=== PATIENT | male | born 1940 | race Caucasian/White ===

== ENCOUNTER 2018-10-05 21:15 | Inpatient (IN) ==
[2018-10-05] MEDS ORDERED: Sod Chloride 0.9% Inj 1,000 ML IV.CONT SCH (21:30)
[2018-10-05] MEDS ORDERED: ALTEPLASE DRIP IV.SIG ONE (21:37)
[2018-10-05] MEDS ORDERED: Alteplase Bolus 9 MG/9 ML Syringe IV.PUSH ONE (21:37)
--- NOTE | 2018-10-05 21:38 | CT ---
EXAM DATE: 10/05/2018 9:31 PM EST AGE/SEX: 78 years / Male INDICATIONS: STROKE ALERT. Left sided weakness. CLINICAL DATA: This is the patient's initial encounter. Patient reports that signs and symptoms have been present for 1 day and indicates a pain score of Nonresponsive. MEDICAL/SURGICAL HISTORY: Non-responsive. Non-responsive. RADIATION DOSE: 56.35 CTDI (mGy) COMPARISON: No prior exams available for comparison. TECHNIQUE: CT of the head without contrast. Using automated exposure control and adjustment of the mA and/or kV according to patient size, radiation dose was kept as low as reasonably achievable to ob tain optimal diagnostic quality images. DICOM format image data is available electronically for revi ew and comparison. FINDINGS: Cerebrum: Diffuse moderate atrophic change with sulcal and ventricular prominence. Patchy periventri cular white matter lucencies are present. No evidence of midline shift, mass lesion, hemorrhage or ac [place] infarction. No extraaxial fluid collections are seen. Posterior Fossa: The cerebellum and brainstem are intact. The 4th ventricle is midline. The cerebe llopontine angle is unremarkable. Extracranial: The visualized portion of the orbits is intact. Skull: The calvaria is intact. No evidence of skull fracture. CONCLUSION: 1. No acute hemorrhage or visualized stroke. 2. Atrophy and chronic small vessel ischemic changes. These findings were called to Dr. Dao by Dr. Jauregui at 2136 hours. Electronically signed by: Derek Jauregui MD Board Certified Radiologist 10/05/2018 9:36 PM EST
[2018-10-05 21:49] LABS: Baso # (Auto) 0.1 th/mm3 (0.0-0.2); Eos # (Auto) 0.2 th/mm3 (0.0-0.4); Eos % (Auto) 2.4 % (0.0-4.0); Hematocrit 42.6 % (39.0-51.0); Hemoglobin 14.4 gm/dL (13.0-17.0); Lymph # (Auto) 1.8 th/mm3 (1.0-4.8); Lymph % (Auto) 25.8 % (9.0-44.0); Mean Corpuscular HGB Conc 33.6 % (32.0-36.0); Mean Corpuscular Hemoglobin 26.6 pg (27.0-34.0); Mean Platelet Volume 7.7 fL (7.0-11.0); Mono # (Auto) 0.6 th/mm3 (0.0-0.9); Mono % (Auto) 8.4 % (0.0-8.0); Neut # (Auto) 4.3 th/mm3 (1.8-7.7); Neut % (Auto) 62.4 % (16.0-70.0); Platelet Count 191 th/mm3 (150-450); Red Blood Count 5.39 mil/mm3 (4.50-5.90); Red Cell Distribution Width 14.9 % (11.6-17.2); White Blood Count 6.8 th/mm3 (4.0-11.0)
[2018-10-05 21:55] LABS: Activated Partial Thrombo Time 25.1 sec (23.4-31.7); INR 1.1 Ratio; Prothrombin Time 10.7 sec (9.8-11.6)
[2018-10-05 22:00] LABS: Creatine Kinase 46 U/L (39-308)
--- NOTE | 2018-10-05 22:03 | CT ---
EXAM DATE: 10/05/2018 9:56 PM EST AGE/SEX: 78 years / Male INDICATIONS: STROKE ALERT. Left sided weakness. CLINICAL DATA: This is the patient's initial encounter. Patient reports that signs and symptoms have been present for 1 day and indicates a pain score of 10/10. MEDICAL/SURGICAL HISTORY: Non-responsive. Non-responsive. RADIATION DOSE: 10.31 CTDI (mGy) ; Combined studies COMPARISON: [facility] [place], CT HEAD W/O CONTRAST, 10/05/2018. . TECHNIQUE: Volumetric scanning was performed using a multi-row detector CT scanner during bolus infu kaelyn of 82 ml Visipaque 320 (iodixanol) nonionic water-soluble contrast as a cumulative dose for mul tiple exams. The data was post processed with a variety of visualization algorithms including full volume maximum intensity projection, multi-planar sliding thin slab reformation, curved planar reform ation, and surface rendering techniques. Using automated exposure control and adjustment of the mA a nd/or kV according to patient size, radiation dose was kept as low as reasonably achievable to obtain optimal diagnostic quality images. DICOM format image data is available electronically for review a nd comparison. FINDINGS: There is excellent visualization of the major intracranial arteries out to the second-order branch ve ssels. There is no evidence for aneurysm, vessel truncation or stenosis, and no evidence for vascula r malformation. CONCLUSION: 1. Negative CTA Head. The report was called to Dr. Dao by Dr. Juarez at 10:00 PM on 10/05/2017. Electronically signed by: Adelfo Juarez MD Board Certified Radiologist 10/05/2018 10:01 PM EST
--- NOTE | 2018-10-05 22:11 | CT ---
EXAM DATE: 10/05/2018 10:02 PM EST AGE/SEX: 78 years / Male INDICATIONS: STROKE ALERT. Left sided weakness. CLINICAL DATA: This is the patient's initial encounter. Patient reports that signs and symptoms have been present for 1 day and indicates a pain score of Nonresponsive. MEDICAL/SURGICAL HISTORY: Non-responsive. Non-responsive. RADIATION DOSE: 10.31 CTDI (mGy) ; Combined studies COMPARISON: No prior exams available for comparison. TECHNIQUE: Volumetric scanning was performed using a multirow detector CT scanner during bolus infus ion of 82 ml Visipaque 320 (iodixanol) nonionic water-soluble contrast as a cumulative dose for mult iple exams. The data was postprocessed with a variety of visualization algorithms including full-vo lume maximum intensity projection, multiplanar sliding thin-slab reformation, curved-planar reformati on, and surface-rendering techniques. Using automated exposure control and adjustment of the mA and/ or kV according to patient size, radiation dose was kept as low as reasonably achievable to obtain op timal diagnostic quality images. DICOM format image data is available electronically for review and comparison. FINDINGS: Aortic Arch: There is a three-vessel origin of the great vessels from the aorta. No evidence of ost ial narrowing Right Carotid: The common carotid artery is intact. The carotid bulb has a normal configuration mil d plaquing calcification. There is less than 50% diameter stenosis. The internal carotid artery lumen is smooth without stenosis. The external carotid artery is intact. Left Carotid: The common carotid artery is intact. The carotid bulb has a normal configuration with mild plaquing and calcification. There is less than 50% diameter stenosis. The internal carotid julia ry lumen is smooth without stenosis. The external carotid artery is intact. Vertebrals: The dominant right vertebral artery. The left is diminutive. No stenotic lesions are see n. Percent stenosis is calculated using the diameter of the stenotic region over the diameter of the nor mal distal internal carotid artery. CONCLUSION: 1. Bilateral plaquing the carotid arteries with less than 50% diameter stenosis. 2. Dominant right vertebral artery with diminutive left vertebral artery. Electronically signed by: Derek Jauregui MD Board Certified Radiologist 10/05/2018 10:09 PM EST
[2018-10-05] MEDS: niCARdipine Inj 25 MG in Sodium Chlor 0.9% Inj 240 ML IV.CONT PRN (22:19)
--- NOTE | 2018-10-05 22:21 | XR ---
EXAM DATE: 10/05/2018 10:18 PM EST AGE/SEX: 78 years / Male INDICATIONS: Stroke alert. CLINICAL DATA: This is the patient's initial encounter. Patient reports that signs and symptoms have been present for 1 day and indicates a pain score of 0/10. MEDICAL/SURGICAL HISTORY: Non-responsive. Non-responsive. COMPARISON: No prior exams available for comparison. FINDINGS: A single AP view of the chest demonstrates the lungs to be symmetrically aerated without evidence of mass, infiltrate or effusion. The cardiomediastinal contours are unremarkable. Osseous structures a re intact. CONCLUSION: No acute cardiopulmonary disease. Electronically signed by: Adelfo Juarez MD Board Certified Radiologist 10/05/2018 10:20 PM EST
--- NOTE | 2018-10-05 22:30 | ED ---
HPI General Chief Complaint: Stroke Alert Stated Complaint: Stroke Alert/ EVAC Time Seen by Provider: 10/05/18 21:18 Source: patient and EMS Mode of arrival: EMS Limitations: no limitations History of Present Illness HPI Narrative: The patient is a 78-year-old male who presents to the emergency department via EMS as a stroke alert. The patient was watching TV and went to reach for drink with his left hand at approximately 8:15 PM when he realized he had weakness of his left arm and then his left leg. The called EMS who called a stroke alert in the field. Upon arrival the patient does complain of weakness to left arm and left leg with weakness and numbness of the left leg. He denies any difficulty with his vision, does complain of feeling slightly off balance. The patient does have a history of hypertension and hyperlipidemia, however, does not currently take any medications including anticoagulants. The patient denies any previous history of TIA or CVA. Symptoms are moderate and consistent. There are no current alleviating factors. Onset (ago): minute(s) Last Observed Normal: 20:15 Timing confirmed by: spouse Location: Reports left arm and left leg History of same: No Severity: moderate Quality: Reports weak, numb and constant Relieving factors: none Exacerbating factors: none Context: Reports sudden onset On Anticoagulants: No Associated symptoms: Reports denies other symptoms Treatments Prior to Arrival: Reports none Related Data Allergies Allergy/AdvReac Type Severity Reaction Status Date / Time No Known Allergies Allergy Verified 10/05/18 21:18 Review of Systems ROS: all other systems reviewed are negative [facility] Medical History Medical History High cholesterol (Acute) Hypertension (Acute) Social History Social History Smoking Status: Former smoker How Often Do You Have a Drink Containing Alcohol: Monthly or less Recent Travel in [facility] within the Last 8 Weeks: No Recent Out of Country Travel within the Last 8 Weeks: No Immunization History Tetanus Immunization: <5 Years Exam Narrative Exam Narrative: GENERAL: Awake, alert, pleasant 78-year-old male who appears his stated age and is in no acute respiratory distress. SKIN: Focused skin assessment warm/dry. HEAD: Atraumatic. Normocephalic. EYES: Pupils equal and round. 3 mm bilateral and reactive. EOMs are intact. ENT: No nasal bleeding or discharge. Mucous membranes pink and moist. NECK: Trachea midline. No JVD. CARDIOVASCULAR: Regular rate and rhythm. No murmur appreciated. RESPIRATORY: No accessory muscle use. Clear to auscultation. Breath sounds equal bilaterally. GASTROINTESTINAL: Abdomen soft, non-tender, nondistended. MUSCULOSKELETAL: No obvious deformities. No clubbing. No cyanosis. No edema. NEUROLOGICAL: Awake and alert. No obvious cranial nerve deficits. No dysarthria. Mild drift to the left arm less than 10 seconds but does not fall to bed. The left leg falls to the bed less than 5 seconds. Decreased sensation to the left leg when compared to the right, however, arms and face are within normal limits and symmetric. Finger to nose is normal. Heel to hernandez is normal. Visual jay are symmetric and intact bilaterally. The patient is oriented x3 and able to name my hand and his date of . NIHSS 4. PSYCHIATRIC: Appropriate mood and affect; insight and judgment normal. Course Initial Documented Vital Signs Temperature 98.2 F 10/05/18 21:17 Pulse Rate 75 10/05/18 21:17 Respiratory Rate 16 10/05/18 21:17 Blood Pressure 201/86 H 10/05/18 21:17 Pulse Oximetry 97 10/05/18 21:17 Last Documented Vital Signs Temperature 98.2 F 10/05/18 21:17 Pulse Rate 84 10/05/18 21:45 Respiratory Rate 16 10/05/18 21:45 Blood Pressure 183/83 H 10/05/18 21:45 Pulse Oximetry 99 10/05/18 21:45 Critical Care Time Critical Care Time: Yes Total Critical Care Time: 45 Attestation: Aggregate critical care time was 45 minutes. Time to perform other separately billable procedures was not included in the critical care time. My time did not include minutes spent treating any other patients simultaneously or on activities that did not directly contribute to the patient's treatment. The services I provided to this patient were to treat and/or prevent clinically significant deterioration that could result in: Hypertensive urgency, hypertensive emergency, chronic neurologic deficit, CVA, intracranial hemorrhage. I provided critical care services requiring my management, as noted below: Chart data review, documentation time, medication orders and management, vital sign assessments/reviewing monitor data, ordering and reviewing lab tests, ordering and interpreting/reviewing x-rays and diagnostic studies, care of the patient and discussion of the patient with the admitting physicians. NIH Stroke Scale NIHSS Time Completed NIHSS Time Completed: 21:14 NIH Stroke Scale Level of Consciousness: 0-Alert Orientation Questions: 0-Answers both correct Responds to Commands: 0-Both tasks correct Gaze Eye Movement: 0-Horizontal movement WNL Visual Jay: 0-No visual field defect Facial Movement: 0-Normal Motor Functions Arm LEFT: 1-Drift before 10 seconds Motor Functions Arm RIGHT: 0-No drift Motor Functions Leg LEFT: 2-Falls before 5 seconds Motor Functions Leg RIGHT: 0-No drift Limb Ataxia: 0-No ataxia Sensory Loss: 1-Mild sensory loss Best Language: 0-Normal Articulation: 0-Normal Extinction or Inattention Sensory: 0-Absent Total: 4 Medical Decision Making MDM Narrative Medical decision making narrative: IV was established, labs are drawn and sent, and the patient was placed on cardiac telemetry monitoring and continuous pulse oximetry monitoring. A stroke scale was as test at 2114, the patient stroke scale was 4. I discussed the patient immediately with a neurologist, Dr. Prashanth Dao, who evaluated the patient in the emergency department as he went to CT for CT of the brain, CTA of the head, and CTA of the neck. Dr. Dao, the neurologist, did follow the patient to the CT suite, the patient CT the brain was negative, the patient was administered TPA after discussion regarding the risk and benefits was given to the patient verbally. The patient received TPA, came back to echo pot room 49. The patient's blood pressure was elevated with systolic greater than 180, therefore, the patient was placed on a Cardene drip which brought his systolic pressure down to 168. The patient will be admitted to the intensive surgical care unit overnight for monitoring with repeat CT the brain in the morning. I discussed the findings with the patient and his at bedside. The patient started vomiting at 10:48 PM, he was placed in the left lateral decubitus position and administered Zofran 4 mg intravenously. Nursing staff placed a call to the continuity person, Dr. Coffey, who had evaluated the patient prior to this. Medical Screen Exam Complete: Yes Emergency Medical Condition: Yes Differential Diagnosis Differential Diagnosis: Differential diagnosis includes CVA, TIA, transient neurologic deficit, intracranial tumor, atypical seizure, complicated migraine, MS. Lab Data Lab results reviewed: Yes I reviewed the patient's lab results. Result diagrams: 10/05/18 21:23 Lab Results 10/05/18 10/05/18 10/05/18 Range/Units 21:23 21:23 21:23 WBC 6.8 (4.0-11.0) th/mm3 RBC 5.39 (4.50-5.90) mil/mm3 Hgb 14.4 (13.0-17.0) gm/dL POC Hgb (Calc) 13.9 (13.0-17.0) g/dL Hct 42.6 (39.0-51.0) % POC Hct 41.0 (39-51.0) % MCV 79.0 L (80.0-100.0) fL MCH 26.6 L (27.0-34.0) pg MCHC 33.6 (32.0-36.0) % RDW 14.9 (11.6-17.2) % Plt Count 191 (150-450) th/mm3 MPV 7.7 (7.0-11.0) fL Prelim Diff (Auto) Slide review pending Neut % (Auto) 62.4 (16.0-70.0) % Lymph % (Auto) 25.8 (9.0-44.0) % [place] % (Auto) 8.4 H (0.0-8.0) % Eos % (Auto) 2.4 (0.0-4.0) % Baso % (Auto) 1.0 (0.0-2.0) % Neut # (Auto) 4.3 (1.8-7.7) th/mm3 Lymph # (Auto) 1.8 (1.0-4.8) th/mm3 [place] # (Auto) 0.6 (0.0-0.9) th/mm3 Eos # (Auto) 0.2 (0.0-0.4) th/mm3 Baso # (Auto) 0.1 (0.0-0.2) th/mm3 WBC Differential . Diff Scan Auto diff confirmed Differential Comment . PT 10.7 (9.8-11.6) sec INR 1.1 Ratio APTT 25.1 (23.4-31.7) sec Fibrinogen 363 (227-377) mg/dL POC Sodium 140 (137-144) mmol/L POC Potassium 3.5 L (3.6-5.0) mmol/L POC Chloride 105 (102-111) mmol/L POC BUN 20 (5-21) mg/dL POC Creatinine 2.2 H (0.6-1.3) mg/dL POC Glucose 121 H (68-110) mg/dL Total Creatine Kinase 46 (39-308) U/L Troponin I Less than 0.02 L (0.02-0.05) ng/mL Blood Type Blood Type Recheck Antibody Screen 10/05/18 Range/Units 21:23 WBC (4.0-11.0) th/mm3 RBC (4.50-5.90) mil/mm3 Hgb (13.0-17.0) gm/dL POC Hgb (Calc) (13.0-17.0) g/dL Hct (39.0-51.0) % POC Hct (39-51.0) % MCV (80.0-100.0) fL MCH (27.0-34.0) pg MCHC (32.0-36.0) % RDW (11.6-17.2) % Plt Count (150-450) th/mm3 MPV (7.0-11.0) fL Prelim Diff (Auto) Neut % (Auto) (16.0-70.0) % Lymph % (Auto) (9.0-44.0) % [place] % (Auto) (0.0-8.0) % Eos % (Auto) (0.0-4.0) % Baso % (Auto) (0.0-2.0) % Neut # (Auto) (1.8-7.7) th/mm3 Lymph # (Auto) (1.0-4.8) th/mm3 [place] # (Auto) (0.0-0.9) th/mm3 Eos # (Auto) (0.0-0.4) th/mm3 Baso # (Auto) (0.0-0.2) th/mm3 WBC Differential Diff Scan Differential Comment PT (9.8-11.6) sec INR Ratio APTT (23.4-31.7) sec Fibrinogen (227-377) mg/dL POC Sodium (137-144) mmol/L POC Potassium (3.6-5.0) mmol/L POC Chloride (102-111) mmol/L POC BUN (5-21) mg/dL POC Creatinine (0.6-1.3) mg/dL POC Glucose (68-110) mg/dL Total Creatine Kinase (39-308) U/L Troponin I (0.02-0.05) ng/mL Blood Type O Positive Blood Type Recheck Required Antibody Screen Negative Imaging Data Attestation: I personally reviewed and interpreted this imaging study as follows : Radiologist's impression: Chest X-Ray 10/05/18 21:18 CONCLUSION: No acute cardiopulmonary disease. Head CT 10/05/18 21:18 CONCLUSION: 1. No acute hemorrhage or visualized stroke. 2. Atrophy and chronic small vessel ischemic changes. These findings were called to Dr. Dao by Dr. Jauregui at 2136 hours. Head CTA 10/05/18 21:18 CONCLUSION: 1. Negative CTA Head. The report was called to Dr. Dao by Dr. Juarez at 10:00 PM on 10/05/2017. Neck CTA 10/05/18 21:18 CONCLUSION: 1. Bilateral plaquing the carotid arteries with less than 50% diameter stenosis. 2. Dominant right vertebral artery with diminutive left vertebral artery. Discharge Plan Discharge Disposition Patient Disposition: ED Admit(ED Internal Use Only) Discharge Condition Condition: Serious Discharge Details Diagnosis: Acute cerebrovascular accident, Hypertension Physicians Team ED Provider: Hayden Reilly Primary Care Provider: UNKNOWN, Discharge Interventions Interventions: Vital Signs Last Done: 10/05/18 21:17 Status ED Status: With Doctor
[2018-10-05 22:47] LABS: Bilirubin,Urine Negative (Negative); Clarity,Urine Clear (Clear); Color,Urine Yellow (Yellw/Straw); Glucose,Urine (UA) Negative (Negative); Leukocyte Esterase,Urine Negative (Negative); Nitrite,Urine Negative (Negative); Specific Gravity,Urine 1.038 (1.002-1.035)
[2018-10-05 22:54] LABS: Amphetamine Screen,Urine Neg (Neg); Barbiturate Screen,Urine Neg (Neg); Cannabinoid Screen,Urine Neg (Neg); Cocaine Screen,Urine Neg (Neg)
[2018-10-05 22:58] LABS: Opiate Screen,Urine Neg (Neg)
--- NOTE | 2018-10-05 23:03 | P.HPCC ---
History of Present Illness Primary Care Physician: UNKNOWN History of Present Illness: 78-year-old male presents as a stroke alert. The patient was watching TV and went to reach for drink with his left hand at approximately 8: 15 PM when he realized he had weakness of his left arm and then his left leg. The called EMS who called a stroke alert in the field. Upon arrival the patient did complain of weakness to left arm and left leg with weakness and numbness of the left leg. He denied any difficulty with his vision, does complain of feeling slightly off balance. The patient does have a history of hypertension and hyperlipidemia, however, does not currently take any medications including anticoagulants. The patient denies any previous history of TIA or CVA. The case was discussed with neurologist on-call and the patient has received IV TPA infusion. Inpatient Certification: I certify that the inpatient services were ordered in accordance with Medicare regulations governing the order. This includes certification that hospital inpatient services are reasonable and necessary and in the case of services not specified as inpatient-only under 42 CFR 419.22(n), that they are appropriately provided as inpatient services in accordance to with the 2-midnight benchmark under 43 CFR 412.3(e) Review of Systems All other systems reviewed negative except as stated in HPI PMFSH - History History Provided By: Patient - Medical History Medical History: Medical History (Last Updated 10/06/18 @ 00:41 by Mitch Rojas RN) Hiatal hernia High cholesterol Hypertension - Surgical History Surgical History: Surgical History (Last Updated 10/06/18 @ 00:42 by Mitch Rojas RN) Hx of tonsillectomy - Tobacco History Smoking Status: Former smoker - Alcohol History How Often Do You Have a Drink Containing Alcohol: Monthly or less - Travel History Recent Travel in the [place] Within the Last 8 Weeks: No Recent Travel Out of the Country Within the Last 8 Weeks: No - Immunization History Tetanus Immunization: <5 Years Medications and Allergies Active Medications: Active Medications Sodium Chloride (Ns Inj) 1,000 mls @ 70 mls/hr IV.CONT .[id number] [facility] Last Admin: 10/05/18 22:59 Dose: 70 mls/hr Nicardipine HCl 25 mg/ Sodium (Chloride) 250 mls @ 50 mls/hr IV.CONT TITRATE PRN; Protocol PRN Reason: Per Protocol Last Admin: 10/05/18 22:19 Dose: 5 mg/hr, 50 mls/hr Allergies Allergy/AdvReac Type Severity Reaction Status Date / Time No Known Allergies Allergy Verified 10/05/18 21:18 Results - Labs CBC & Chem 7: 10/05/18 21:23 Labs: Short CBC 10/05/18 Range/Units 21:23 WBC 6.8 (4.0-11.0) th/mm3 Hgb 14.4 (13.0-17.0) gm/dL Hct 42.6 (39.0-51.0) % Plt Count 191 (150-450) th/mm3 Cardiac Enzymes 10/05/18 Range/Units 21:23 Total Creatine Kinase 46 (39-308) U/L Troponin I Less than 0.02 L (0.02-0.05) ng/mL Urine 10/05/18 Range/Units 22:32 Urine Color Yellow (Yellw/Straw) Urine Clarity Clear (Clear) Urine pH 6.0 (5.0-8.5) Ur Specific Swisher 1.038 H (1.002-1.035) Urine Protein Negative (Neg-Trace) mg/dL Urine Glucose (UA) Negative (Negative) mg/dL - Imaging Impressions Chest X-Ray 10/05/18 21:18 CONCLUSION: No acute cardiopulmonary disease. Head CT 10/05/18 21:18 CONCLUSION: 1. No acute hemorrhage or visualized stroke. 2. Atrophy and chronic small vessel ischemic changes. These findings were called to Dr. Dao by Dr. Jauregui at 2136 hours. Head CTA 10/05/18 21:18 CONCLUSION: 1. Negative CTA Head. The report was called to Dr. Dao by Dr. Juarez at 10:00 PM on 10/05/2017. Neck CTA 10/05/18 21:18 CONCLUSION: 1. Bilateral plaquing the carotid arteries with less than 50% diameter stenosis. 2. Dominant right vertebral artery with diminutive left vertebral artery. Exam Vital signs: Vital Signs 10/05/18 21:17 10/05/18 21:18 10/05/18 21:21 Temperature 98.2 F Pulse Rate 75 Respiratory Rate 16 Blood Pressure 201/86 H Pulse Oximetry 97 99 99 10/05/18 21:25 10/05/18 21:30 10/05/18 21:45 Temperature Pulse Rate 77 84 84 Respiratory Rate 16 18 16 Blood Pressure 179/80 H 181/82 H 183/83 H Pulse Oximetry 99 99 99 10/05/18 22:25 10/05/18 22:30 10/05/18 22:40 Temperature Pulse Rate 75 81 Respiratory Rate 16 16 Blood Pressure 179/81 H 160/74 H 167/65 H Pulse Oximetry 99 99 10/05/18 22:45 10/05/18 23:00 Temperature Pulse Rate 83 Respiratory Rate 16 Blood Pressure 163/72 H 179/71 H Pulse Oximetry 97 Intake & Output 10/05/18 10/05/18 10/06/18 06:59 18:59 06:59 Intake Total 71.5 / 71.5 Balance 71.5 / 71.5 Weight 88.451 kg Intake: IV 71.5 / 71.5 Activase Drip 71.5 MG In Bag/ 71.5 / 71.5 Syringe 1 EACH @ 71.5 mls/hr IV .SIG ONCE ONE Rx#:[id number] - Constitutional no acute distress - Routine HEENT Exam Head: Present: normocephalic, atraumatic Eye: Present: PERRL, normal accommodation ENT: Present: mucous membranes moist - Routine Neck Exam Present: supple, full ROM. Absent: JVD, carotid bruit - Routine Respiratory Exam Absent: accessory muscle use, rales, rhonchi - Routine Cardiovascular Exam Present: RRR, S1, S2 - Routine Abdominal Exam Present: soft, normoactive bowel sounds - Routine Extremities Exam Absent: cyanosis, clubbing, edema - Routine Skin Exam Present: intact. Absent: cyanosis, erythema - Routine Neurological Exam Present: alert, oriented X3, moving all extremities. Absent: sensory deficit, motor deficit Septic Shock Reassessment Septic shock perfusion: reassessment completed Caprini VTE Risk Assessment Caprini VTE Risk Assessment: Moderate/High Risk (score >= 2) Caprini Risk Assessment Model: Point Value = 1 Point Value = 2 Point Value = 3 Point Value = 5 Age 41-60 Minor surgery BMI > 25 kg/m2 Swollen legs Varicose veins or History of unexplained or recurrent spontaneous Oral contraceptives or hormone replacement Sepsis (< 1 month) Serious lung disease, including pneumonia (< 1 month) Abnormal pulmonary function Acute myocardial infarction Congestive heart failure (< 1 month) History of inflammatory bowel disease Medical patient at bed rest Age 61-74 Arthroscopic surgery Major open surgery (> 45 min) Laparoscopic surgery (> 45 min) Malignancy Confined to bed (> 72 hours) Immobilizing plaster cast Central venous access Age >= 75 History of VTE Family history of VTE Factor V Leiden Prothrombin [id number] Lupus anticoagulant Anticardiolipin antibodies Elevated serum homocysteine Heparin-induced thrombocytopenia Other congenital or acquired thrombophilia Stroke (< 1 month) Elective arthroplasty Hip, pelvis, or leg fracture Acute spinal cord injury (< 1 month) Prophylaxis Regimen: Total Risk Factor Score Risk Level Prophylaxis Regimen 0-1 Low Early ambulation 2 Moderate Order ONE of the following: *Sequential Compression Device (SCD) *Heparin 5000 units SQ BID 3-4 Higher Order ONE of the following medications: *Heparin 5000 units SQ TID *Enoxaparin/Lovenox 40 mg SQ daily (WT < 150 kg, CrCl > 30 mL/min) *Enoxaparin/Lovenox 30 mg SQ daily (WT < 150 kg, CrCl > 10-29 mL/min) *Enoxaparin/Lovenox 30 mg SQ BID (WT < 150 kg, CrCl > 30 mL/min) AND/OR *Sequential Compression Device (SCD) 5 or more Highest Order ONE of the following medications: *Heparin 5000 units SQ TID (Preferred with Epidurals) *Enoxaparin/Lovenox 40 mg SQ daily (WT < 150 kg, CrCl > 30 mL/min) *Enoxaparin/Lovenox 30 mg SQ daily (WT < 150 kg, CrCl > 10-29 mL/min) *Enoxaparin/Lovenox 30 mg SQ BID (WT < 150 kg, CrCl > 30 mL/min) AND *Sequential Compression Device (SCD) Assessment and Plan - Assessment and Plan Plan: Acute CVA -Status post TPA administration -BP goal less than 180 -PT and OT -Lipid panel and A1c a.m. -Repeat CT head per TPA protocol -Further management per neurology Dyslipidemia -Lipid panel a.m. Hypertension -Nicardipine drip to keep SBP less than 180 -Start Norvasc a.m. after swallow evaluation DVT GI prophylaxis -Teds SCDs -Start pharmacological DVT prophylaxis 24-hour post TPA -Pepcid Level 2
[2018-10-05] MEDS ORDERED: Acetaminophen 325 MG Tablet PO PRN (23:19)
[2018-10-05] MEDS ORDERED: Bisacodyl 10 MG Supp RECTAL PRN (23:19)
[2018-10-05] MEDS ORDERED: Morphine Inj 4 MG/ML Vial IV.PUSH PRN (23:19)
--- NOTE | 2018-10-05 23:20 | MB ---
cc: Prashanth Dao MD, PhD DATE: 10/05/2018 REASON FOR CONSULT: Stroke alert. HISTORY OF PRESENT ILLNESS: This is a 78-year-old male, who noted acute onset of left-sided weakness ____ and presented to the ER as a stroke alert. Symptoms remained stable. NIH stroke scale initially was 4. He was hypertensive upon arrival in the ER. Blood pressure came down to 178/80. There is no prior history of stroke. Denies being on any blood thinners. NEUROLOGICAL EXAMINATION: VITAL SIGNS: Blood pressure 178/80, pulse is 75 and regular, normal sinus rhythm, respirations 16, temperature 98 degrees. HIGHER CORTICAL FUNCTION: speech is mildly dysarthric. CRANIAL NERVES: Intact. MOTOR EXAM: He is weak in the left arm and left leg at 4/5, with normal strength on the right. Diminished strength risk of blood clots. Sensory exams to abduction of the left leg. Reflexes are 2+ symmetric. IMAGING STUDIES: CT of the brain, no acute change present. CTA of the head is negative for any large vessel occlusion. LABORATORY DATA: White count 6800, hemoglobin 14.4, hematocrit 42.6%, platelets 191,000. PTT ____, PTT 25.1. Sodium is 140, potassium 3.5, chloride 105, BUN is 20, creatinine 2.2, glucose 121. CPK 46. IMPRESSION: Acute right hemispheric stroke. RECOMMENDATIONS: The patient is a candidate for IV tPA. This is discussed with the patient, including the risk of cerebral hemorrhage. He agrees to proceed. Therefore, we proceeded with IV tPA per protocol. There is no evidence of large vessel occlusion for intervention. The patient will be monitored in the [facility] with close neuro checks. No antiplatelets or anticoagulants for 24 hours after tPA. We will obtain a CT of the brain 24 hours post-tPA. Also, MRI of the brain and echocardiogram and lipid panel. Thank you for asking me to see this patient in consultation. Prashanth Dao MD, PhD JOON/jean-claude/shama , 10:07 PM , 10:13 PM
[2018-10-06] MEDS: niCARdipine Inj 25 MG in Sodium Chlor 0.9% Inj 240 ML IV.CONT PRN ×3 (02:36→14:21)
[2018-10-06] MEDS ORDERED: Chlorhexidine Gluconate 2% 1 Pack (2 Cloths) TOPICAL PRN (04:00)
[2018-10-06] MEDS: Chlorhexidine Gluconate 2% 1 Pack (2 Cloths) TOPICAL SCH (04:17)
--- NOTE | 2018-10-06 09:19 | MR ---
EXAM DATE: 10/06/2018 9:14 AM EST AGE/SEX: 78 years / Male INDICATIONS: . Left arm and leg weakness. CLINICAL DATA: This is the patient's subsequent encounter. Patient reports that signs and symptoms h ave been present for 2 days and indicates a pain score of 0/10. MEDICAL/SURGICAL HISTORY: Hypertension. Tonsillectomy. hernia COMPARISON: [facility] [place], CT HEAD W/O CONTRAST, 10/05/2018. . TECHNIQUE: Multiplanar, multisequence examination of the brain was performed without contrast. FINDINGS: Cerebrum: Focal signal abnormality is noted involving the right lateral thalamus on the diffusion-we ighted images indicating acute infarct. Mild cerebral atrophy is noted. No acute hemorrhage, midline shift or extra-axial fluid collections are noted. White Matter: Mild periventricular and subcortical white matter small vessel ischemic changes noted b ilaterally. Posterior Fossa: The cerebellum and brainstem are intact. The 4th ventricle is midline. The cerebel lopontine angle is unremarkable. The cerebellar tonsils are normal in position. Diffusion Imaging: No focal areas of restricted diffusion are seen. No evidence of acute infarction . Extracranial: The visualized portions of the orbits and paranasal sinuses are unremarkable. CONCLUSION: 1. Focal signal abnormality within the right lateral thalamus on the diffusion-weighted images indic ating acute infarct. 2. Mild cerebral atrophy. 3. Mild periventricular and subcortical white matter small vessel ischemic changes bilaterally. 4. No acute hemorrhage, midline shift, mass effect or extra-axial fluid collection. Electronically signed by: Adelfo Juarez MD Board Certified Radiologist 10/06/2018 9:18 AM EST
[2018-10-06] MEDS: Famotidine PF Inj 20 MG/2 ML Vial IV.PUSH SCH ×2 (09:40→21:16)
[2018-10-06] MEDS: Sod Chloride 0.9% Inj 1,000 ML IV.CONT SCH ×3 (09:40→21:16)
[2018-10-06] MEDS: Senna/Docusate Sodium 8.6/50 MG Tablet PO SCH ×2 (09:41→21:15)
--- NOTE | 2018-10-06 12:24 | P.PNIM ---
Subjective Interval history: Patient reports he is feeling much better today. Left-sided weakness significantly improved. Discussed with his significant other at bedside. Discussed with RN. He still requires a Cardene drip. Physical Exam Vital signs: Vital Signs 10/05/18 21:17 10/05/18 21:18 10/05/18 21:21 Temperature 98.2 F Pulse Rate 75 Respiratory Rate 16 Blood Pressure 201/86 H Pulse Oximetry 97 99 99 10/05/18 21:25 10/05/18 21:30 10/05/18 21:45 Temperature Pulse Rate 77 84 84 Respiratory Rate 16 18 16 Blood Pressure 179/80 H 181/82 H 183/83 H Pulse Oximetry 99 99 99 10/05/18 22:25 10/05/18 22:30 10/05/18 22:40 Temperature Pulse Rate 75 81 Respiratory Rate 16 16 Blood Pressure 179/81 H 160/74 H 167/65 H Pulse Oximetry 99 99 10/05/18 22:45 10/05/18 23:00 10/05/18 23:07 Temperature Pulse Rate 83 Respiratory Rate 16 Blood Pressure 163/72 H 179/71 H Pulse Oximetry 97 98 10/05/18 23:10 10/05/18 23:15 10/06/18 00:00 Temperature 97.5 F L Pulse Rate 84 83 Respiratory Rate 16 16 Blood Pressure 169/78 H 164/73 H 167/77 H Pulse Oximetry 98 97 10/06/18 00:01 10/06/18 00:19 10/06/18 00:33 Temperature Pulse Rate 87 85 79 Respiratory Rate 30 H 39 H 35 H Blood Pressure 164/79 H 168/78 H Pulse Oximetry 94 L 95 10/06/18 00:48 10/06/18 00:54 10/06/18 01:00 Temperature Pulse Rate 88 89 78 Respiratory Rate 29 H 36 H 26 H Blood Pressure 180/81 H 170/75 H Pulse Oximetry 95 96 95 10/06/18 01:03 10/06/18 01:18 10/06/18 01:33 Temperature Pulse Rate 77 88 86 Respiratory Rate 35 H 24 36 H Blood Pressure 170/74 H 168/73 H 166/61 H Pulse Oximetry 97 93 L 92 L 10/06/18 01:48 10/06/18 02:00 10/06/18 02:03 Temperature Pulse Rate 89 86 86 Respiratory Rate 28 H 30 H 28 H Blood Pressure 167/71 H 155/67 H Pulse Oximetry 93 L 95 95 10/06/18 02:18 10/06/18 02:33 10/06/18 02:48 Temperature Pulse Rate 81 90 87 Respiratory Rate 25 H 33 H 28 H Blood Pressure 150/66 H 164/72 H 157/56 H Pulse Oximetry 95 95 94 L 10/06/18 03:00 10/06/18 03:03 10/06/18 03:18 Temperature Pulse Rate 90 89 91 H Respiratory Rate 26 H 31 H 33 H Blood Pressure 168/87 H 167/85 H Pulse Oximetry 94 L 96 95 10/06/18 03:33 10/06/18 03:48 10/06/18 04:00 Temperature 97.9 F Pulse Rate 88 87 88 Respiratory Rate 29 H 32 H 26 H Blood Pressure 138/65 164/71 H Pulse Oximetry 94 L 95 93 L 10/06/18 04:03 10/06/18 04:18 10/06/18 04:33 Temperature Pulse Rate 88 73 85 Respiratory Rate 33 H 20 31 H Blood Pressure 142/64 H 141/63 H 175/73 H Pulse Oximetry 95 94 L 94 L 10/06/18 04:48 10/06/18 05:00 10/06/18 05:03 Temperature Pulse Rate 83 86 80 Respiratory Rate 27 H 31 H 25 H Blood Pressure 165/78 H 169/80 H Pulse Oximetry 95 95 96 10/06/18 05:18 10/06/18 05:33 10/06/18 05:48 Temperature Pulse Rate 73 66 72 Respiratory Rate 16 38 H 57 H Blood Pressure 146/75 H 137/65 161/79 H Pulse Oximetry 93 L 94 L 96 10/06/18 06:00 10/06/18 06:03 10/06/18 06:18 Temperature Pulse Rate 66 65 63 Respiratory Rate 25 H 14 18 Blood Pressure 147/79 H 150/76 H Pulse Oximetry 94 L 95 96 10/06/18 06:33 10/06/18 06:48 10/06/18 07:00 Temperature Pulse Rate 63 63 61 Respiratory Rate 14 28 H 19 Blood Pressure 152/77 H 149/69 H Pulse Oximetry 96 95 95 10/06/18 07:03 10/06/18 07:18 10/06/18 07:33 Temperature 97.7 F Pulse Rate 61 62 60 Respiratory Rate 16 15 14 Blood Pressure 145/67 H 144/62 H 131/62 Pulse Oximetry 96 96 96 10/06/18 07:48 10/06/18 07:50 10/06/18 08:00 Temperature Pulse Rate 67 77 62 Respiratory Rate 29 H 33 H 28 H Blood Pressure 186/96 H 165/74 H Pulse Oximetry 98 95 96 10/06/18 08:03 10/06/18 08:18 10/06/18 09:18 Temperature Pulse Rate 60 61 63 Respiratory Rate 28 H 36 H Blood Pressure 163/64 H 151/69 H Pulse Oximetry 97 97 10/06/18 10:00 10/06/18 11:58 Temperature Pulse Rate 66 Respiratory Rate 16 Blood Pressure Pulse Oximetry 96 93 L Intake & Output 10/05/18 10/06/18 10/06/18 18:59 06:59 18:59 Intake Total 321.5 / 321.5 Output Total 1050 / 1050 250 / 250 Balance -728.5 / -728.5 -250 / -250 Weight 87.5 kg Intake: IV 321.5 / 321.5 Cardene Inj 25 MG In NS Inj 240 250 / 250 ML @ 5 MG/HR 50 mls/hr IV.CONT TITRATE PRN Rx#:[id number] Activase Drip 71.5 MG In Bag/ 71.5 / 71.5 Syringe 1 EACH @ 71.5 mls/hr IV .SIG ONCE ONE Rx#:[id number] Output: Urine 1050 / 1050 250 / 250 Other: # Voids 6 Weight On Admission 87.5 kg Narrative: GENERAL: This is a well-nourished, well-developed patient, in no apparent distress. CARDIOVASCULAR: Normal rate and regular rhythm without murmurs, gallops, or rubs. RESPIRATORY: Good respiratory efforts. Breath sounds equal and clear to auscultation bilaterally. GASTROINTESTINAL: Abdomen soft, non-tender, non-distended. Normal active bowel sounds MUSCULOSKELETAL: Extremities without cyanosis, or edema. NEURO: Alert & Oriented x4 to person, place, time, situation. Moves all ext x4. Strength is 4+ out of 5 on the left compared to 5 out of 5 on the right. Speech is clear. PSYCH: Appropriate mood and affect. Results Labs CBC & Chem 7: 10/05/18 21:23 Imaging Imaging: Impressions Chest X-Ray 10/05/18 21:18 CONCLUSION: No acute cardiopulmonary disease. Head CT 10/05/18 21:18 CONCLUSION: 1. No acute hemorrhage or visualized stroke. 2. Atrophy and chronic small vessel ischemic changes. These findings were called to Dr. Dao by Dr. Jauregui at 2136 hours. Head CTA 10/05/18 21:18 CONCLUSION: 1. Negative CTA Head. The report was called to Dr. Dao by Dr. Juarez at 10:00 PM on 10/05/2017. Neck CTA 10/05/18 21:18 CONCLUSION: 1. Bilateral plaquing the carotid arteries with less than 50% diameter stenosis. 2. Dominant right vertebral artery with diminutive left vertebral artery. Head MRI 10/06/18 00:00 CONCLUSION: 1. Focal signal abnormality within the right lateral thalamus on the diffusion- weighted images indicating acute infarct. 2. Mild cerebral atrophy. 3. Mild periventricular and subcortical white matter small vessel ischemic changes bilaterally. 4. No acute hemorrhage, midline shift, mass effect or extra-axial fluid collection. Assessment and Plan Plan 78-year-old male admitted with acute CVA. The patient has hypertension but went off his antihypertensives 2 years ago. Acute CVA -Status post TPA administration -Currently on Cardene drip -PT and OT -Lipid panel and A1c pending -MRI at this morning suggests right lateral thalamus infarct. No intracranial hemorrhage or midline shift. -Further management per neurology Dyslipidemia -Lipid panel is pending Hypertension -Wean off nicardipine drip to keep SBP less than 160 -Start Norvasc and lisinopril 5 mg. -Clonidine as needed CKD stage III: -Discussed with his . He is CKD has been stable. - Avoid nephrotoxins. DVT GI prophylaxis -Teds SCDs -Start pharmacological DVT prophylaxis 24-hour post TPA -Pepcid Can transfer out of ICU once Cardene drip is weaned off. Progress Note: Quality VTE Deep Vein Thrombosis/Pulmonary Embolism Present on Admission: No
[2018-10-06] MEDS: Lisinopril 5 MG Tablet PO SCH ×2 (14:51→21:15)
[2018-10-06] MEDS: amLODIPine 10 MG Tablet PO SCH (14:51)
--- NOTE | 2018-10-06 15:25 | US ---
EXAM DATE: 10/06/2018 3:19 PM EST AGE/SEX: 78 years / Male INDICATIONS: Left leg edema. CLINICAL DATA: This is the patient's initial encounter. Patient reports that signs and symptoms have been present for 1 day and indicates a pain score of 3/10. MEDICAL/SURGICAL HISTORY: Hypertension. Hiatal hernia. High cholesterol. Tonsillectomy. COMPARISON: No prior exams available for comparison. TECHNIQUE: Venous ultrasound of both lower extremities was performed from the inguinal ligament to t he proximal calf. Real-time, color Doppler and spectral tracing, compression and augmentation techni ques were used. FINDINGS: Normal compression of the deep venous system from the inguinal region to the proximal calf . No echogenic clot is seen. Normal response of the venous system to augmentation and respiration. CONCLUSION: 1. The study is negative for lower extremity deep venous thrombosis. Electronically signed by: John Reyes MD Board Certified Radiologist 10/06/2018 3:24 PM EST
--- NOTE | 2018-10-06 16:42 | ECG ---
Date Performed: 10/05/2018 Time Performed: 22:05:19 PTAGE: 78 years EKG: Sinus rhythm NORMAL ECG PREVIOUS TRACING : 10/05/2018 22.02 DOCTOR: William Alarcon Interpretating Date/Time 10/06/2018 16:40:41
--- NOTE | 2018-10-06 17:02 | ECHRPT ---
Indication: CVA/TIA CONCLUSIONS Normal left ventricular size. Wall thickness is measured at the upper limits of normal. The left ventricular systolic function is low normal with an estimated ejection fraction in the rang e of 50- 55%. Mitral annular calcification is present. Trace mitral valve regurgitation. BP: / HR: Rhythm: Sinus MEASUREMENTS (Male / Female) Normal Values Technical Quality:Fair 2D ECHO LV Diastolic Diameter PLAX 5.1 cm 4.2 - 5.9 / 3.9 - 5.3 cm LV Systolic Diameter PLAX 4.0 cm IVS Diastolic Thickness 1.1 cm 0.6 - 1.0 / 0.6 - 0.9 cm LVPW Diastolic Thickness 1.1 cm 0.6 - 1.0 / 0.6 - 0.9 cm LV Relative Wall Thickness 0.4 RV Internal Dim ED PLAX 3.1 cm LVOT Diameter 1.9 cm Aortic Root Diameter 3.0 cm LA Systolic Diameter LX 4.6 cm 3.0 - 4.0 / 2.7 - 3.8 cm LV Ejection Fraction MOD 4C 50.0 % LV Ejection Fraction 4C AL 49.7 % M-MODE AV Cusp Separation MM 1.9 cm DOPPLER AV Peak Velocity 167.0 cm/s AV Peak Gradient 11.2 mmHg LVOT Peak Velocity 118.0 cm/s LVOT Peak Gradient 5.6 mmHg AV Area Cont Eq pk 2.0 cm MV Peak Velocity 143.0 cm/s MV Peak Gradient 8.2 mmHg MV Mean Velocity 73.1 cm/s MV Mean Gradient 3.0 mmHg Mitral E Point Velocity 101.0 cm/s Mitral A Point Velocity 144.0 cm/s Mitral E to A Ratio 0.7 TR Peak Velocity 132.0 cm/s TR Peak Gradient 7.0 mmHg Right Atrial Pressure 10.0 mmHg Pulmonary Artery Systolic Pressu 17.0 mmHg Right Ventricular Systolic Press 17.0 mmHg PV Peak Velocity 122.0 cm/s PV Peak Gradient 6.0 mmHg FINDINGS LEFT VENTRICLE Normal left ventricular size. Wall thickness is measured at the upper limits of normal. The left ventricular systolic function is low normal with an estimated ejection fraction in the rang e of 50- 55%. RIGHT VENTRICLE Normal right ventricular size and systolic function. LEFT ATRIUM The left atrial size is normal. RIGHT ATRIUM The right atrial size is normal. ATRIAL SEPTUM Normal atrial septal thickness without atrial level shunting by limited color doppler interrogation. AORTA The aortic root and proximal ascending aorta are normal in size on limited imaging. MITRAL VALVE Mitral annular calcification is present. Trace mitral valve regurgitation. AORTIC VALVE Trileaflet aortic valve. No aortic valve stenosis or regurgitation. TRICUSPID VALVE Structurally normal tricuspid valve. No tricuspid valve stenosis or regurgitation. PULMONARY VALVE No pulmonary valve regurgitation or stenosis. VESSELS The inferior vena cava is normal in size. PERICARDIUM No pericardial effusion. Chalino Ayala MD, FACC, [facility] [place] (Electronically Signed) Final Date:06 October 2018 17:01
--- NOTE | 2018-10-06 20:30 | P.PNNEU ---
Subjective Subjective Comments: pt improved in left sided strength but still feels weak on that side Active Medications: Active Medications Acetaminophen (Tylenol) 650 mg PO Q6H PRN PRN Reason: PAIN 1-10 AND/OR FEVER >101F Al Hydroxide/Mg Hydroxide (Milk Of Magnesia Liq) 30 ml PO Q12H PRN PRN Reason: Mild Constipation Albuterol (Duoneb Neb (Prn)) 1 ampul NEB Q2HR NEB PRN PRN Reason: WHEEZING Amlodipine Besylate (Norvasc) 10 mg PO DAILY [facility] Last Admin: 10/06/18 14:51 Dose: 10 mg Atorvastatin Calcium (Lipitor) 40 mg PO QPM [facility] Last Admin: 10/06/18 18:18 Dose: Not Given Bisacodyl (Dulcolax Supp) 10 mg RECTAL DAILY PRN PRN Reason: SEVERE CONSITIPATION Chlorhexidine Gluconate (Chlorhexidine 2% Cloth) 3 pack TOPICAL DAILY@0400 [facility] Stop: 10/11/18 03:59 Last Admin: 10/06/18 04:17 Dose: 3 pack Chlorhexidine Gluconate (Chlorhexidine 2% Cloth) 3 pack TOPICAL DAILY@0400 PRN PRN Reason: Extra cloth needed Stop: 10/11/18 03:59 Clonidine HCl (Catapres) 0.1 mg PO Q6H PRN PRN Reason: SEE LABEL COMMENTS Cyclobenzaprine HCl (Flexeril) 5 mg PO Q8H PRN PRN Reason: MUSCLE SPASM Last Admin: 10/06/18 14:52 Dose: 5 mg Famotidine (Pepcid Pf Inj) 20 mg IV.PUSH Q12HR [facility] Last Admin: 10/06/18 09:40 Dose: 20 mg Nicardipine HCl 25 mg/ Sodium (Chloride) 250 mls @ 50 mls/hr IV.CONT TITRATE PRN; Protocol PRN Reason: Per Protocol Last Admin: 10/06/18 14:21 Dose: 5 mg/hr, 50 mls/hr Sodium Chloride (Ns Inj) 1,000 mls @ 84 mls/hr IV.CONT .[id number] [facility] Last Admin: 10/06/18 16:13 Dose: Not Given Lactulose (Lactulose Liq) 30 ml PO DAILY PRN PRN Reason: SEVERE CONSITIPATION Lisinopril (Prinivil) 5 mg PO BID [facility] Last Admin: 10/06/18 14:51 Dose: 5 mg Morphine Sulfate (Morphine Inj) 2 mg IV.PUSH Q2H PRN PRN Reason: PAIN SCALE 6 TO 10 Last Admin: 10/06/18 15:37 Dose: 2 mg Ondansetron HCl (Zofran Inj) 4 mg IV.PUSH Q6H PRN PRN Reason: NAUSEA OR VOMITING Senna/Docusate Sodium (Elise-Colace) 1 tab PO BID [facility] Last Admin: 10/06/18 09:41 Dose: Not Given Sennosides (Senokot) 17.2 mg PO Q12H PRN PRN Reason: Moderate Constipation Sodium Chloride (Ns Flush) 2 ml IV.FLUSH BID [facility] Last Admin: 10/06/18 09:40 Dose: 2 ml Sodium Chloride (Ns Flush) 2 ml IV.FLUSH PRN PRN PRN Reason: FLUSH AFTER USING IV ACCESS Allergies/Adverse Reactions: Allergies Allergy/AdvReac Type Severity Reaction Status Date / Time No Known Allergies Allergy Verified 10/05/18 21:18 Physical Exam Vital signs: Vital Signs 10/05/18 21:17 10/05/18 21:18 10/05/18 21:21 Temperature 98.2 F Pulse Rate 75 Respiratory Rate 16 Blood Pressure 201/86 H Pulse Oximetry 97 99 99 10/05/18 21:25 10/05/18 21:30 10/05/18 21:45 Temperature Pulse Rate 77 84 84 Respiratory Rate 16 18 16 Blood Pressure 179/80 H 181/82 H 183/83 H Pulse Oximetry 99 99 99 10/05/18 22:25 10/05/18 22:30 10/05/18 22:40 Temperature Pulse Rate 75 81 Respiratory Rate 16 16 Blood Pressure 179/81 H 160/74 H 167/65 H Pulse Oximetry 99 99 10/05/18 22:45 10/05/18 23:00 10/05/18 23:07 Temperature Pulse Rate 83 Respiratory Rate 16 Blood Pressure 163/72 H 179/71 H Pulse Oximetry 97 98 10/05/18 23:10 10/05/18 23:15 10/06/18 00:00 Temperature 97.5 F L Pulse Rate 84 83 Respiratory Rate 16 16 Blood Pressure 169/78 H 164/73 H 167/77 H Pulse Oximetry 98 97 10/06/18 00:01 10/06/18 00:19 10/06/18 00:33 Temperature Pulse Rate 87 85 79 Respiratory Rate 30 H 39 H 35 H Blood Pressure 164/79 H 168/78 H Pulse Oximetry 94 L 95 10/06/18 00:48 10/06/18 00:54 10/06/18 01:00 Temperature Pulse Rate 88 89 78 Respiratory Rate 29 H 36 H 26 H Blood Pressure 180/81 H 170/75 H Pulse Oximetry 95 96 95 10/06/18 01:03 10/06/18 01:18 10/06/18 01:33 Temperature Pulse Rate 77 88 86 Respiratory Rate 35 H 24 36 H Blood Pressure 170/74 H 168/73 H 166/61 H Pulse Oximetry 97 93 L 92 L 10/06/18 01:48 10/06/18 02:00 10/06/18 02:03 Temperature Pulse Rate 89 86 86 Respiratory Rate 28 H 30 H 28 H Blood Pressure 167/71 H 155/67 H Pulse Oximetry 93 L 95 95 10/06/18 02:18 10/06/18 02:33 10/06/18 02:48 Temperature Pulse Rate 81 90 87 Respiratory Rate 25 H 33 H 28 H Blood Pressure 150/66 H 164/72 H 157/56 H Pulse Oximetry 95 95 94 L 10/06/18 03:00 10/06/18 03:03 10/06/18 03:18 Temperature Pulse Rate 90 89 91 H Respiratory Rate 26 H 31 H 33 H Blood Pressure 168/87 H 167/85 H Pulse Oximetry 94 L 96 95 10/06/18 03:33 10/06/18 03:48 10/06/18 04:00 Temperature 97.9 F Pulse Rate 88 87 88 Respiratory Rate 29 H 32 H 26 H Blood Pressure 138/65 164/71 H Pulse Oximetry 94 L 95 93 L 10/06/18 04:03 10/06/18 04:18 10/06/18 04:33 Temperature Pulse Rate 88 73 85 Respiratory Rate 33 H 20 31 H Blood Pressure 142/64 H 141/63 H 175/73 H Pulse Oximetry 95 94 L 94 L 10/06/18 04:48 10/06/18 05:00 10/06/18 05:03 Temperature Pulse Rate 83 86 80 Respiratory Rate 27 H 31 H 25 H Blood Pressure 165/78 H 169/80 H Pulse Oximetry 95 95 96 10/06/18 05:18 10/06/18 05:33 10/06/18 05:48 Temperature Pulse Rate 73 66 72 Respiratory Rate 16 38 H 57 H Blood Pressure 146/75 H 137/65 161/79 H Pulse Oximetry 93 L 94 L 96 10/06/18 06:00 10/06/18 06:03 10/06/18 06:18 Temperature Pulse Rate 66 65 63 Respiratory Rate 25 H 14 18 Blood Pressure 147/79 H 150/76 H Pulse Oximetry 94 L 95 96 10/06/18 06:33 10/06/18 06:48 10/06/18 07:00 Temperature Pulse Rate 63 63 61 Respiratory Rate 14 28 H 19 Blood Pressure 152/77 H 149/69 H Pulse Oximetry 96 95 95 10/06/18 07:03 10/06/18 07:18 10/06/18 07:33 Temperature 97.7 F Pulse Rate 61 62 60 Respiratory Rate 16 15 14 Blood Pressure 145/67 H 144/62 H 131/62 Pulse Oximetry 96 96 96 10/06/18 07:48 10/06/18 07:50 10/06/18 08:00 Temperature Pulse Rate 67 77 62 Respiratory Rate 29 H 33 H 28 H Blood Pressure 186/96 H 165/74 H Pulse Oximetry 98 95 96 10/06/18 08:03 10/06/18 08:18 10/06/18 09:18 Temperature Pulse Rate 60 61 63 Respiratory Rate 28 H 36 H Blood Pressure 163/64 H 151/69 H Pulse Oximetry 97 97 10/06/18 10:00 10/06/18 11:00 10/06/18 11:45 Temperature Pulse Rate 66 72 70 Respiratory Rate 16 30 H 15 Blood Pressure 151/68 H Pulse Oximetry 96 96 88 L 10/06/18 11:58 10/06/18 12:00 10/06/18 13:00 Temperature 97.7 F Pulse Rate 68 71 Respiratory Rate 16 31 H Blood Pressure Pulse Oximetry 93 L 93 L 94 L 10/06/18 14:00 10/06/18 14:19 10/06/18 15:00 Temperature Pulse Rate 77 75 75 Respiratory Rate 31 H 31 H 27 H Blood Pressure 163/70 H Pulse Oximetry 94 L 94 L 93 L 10/06/18 15:29 10/06/18 15:40 10/06/18 15:50 Temperature Pulse Rate 73 77 72 Respiratory Rate 25 H 42 H 25 H Blood Pressure 161/70 H 170/78 H 145/66 H Pulse Oximetry 91 L 95 93 L 10/06/18 16:00 10/06/18 16:10 10/06/18 16:20 Temperature Pulse Rate 67 66 63 Respiratory Rate 18 16 16 Blood Pressure 141/65 H 134/63 133/62 Pulse Oximetry 94 L 96 96 10/06/18 16:30 10/06/18 16:40 10/06/18 16:50 Temperature 97.7 F Pulse Rate 61 60 61 Respiratory Rate 16 14 15 Blood Pressure 134/61 141/62 H 129/56 L Pulse Oximetry 95 95 95 10/06/18 17:00 10/06/18 17:10 10/06/18 17:20 Temperature Pulse Rate 59 L 61 61 Respiratory Rate 14 17 14 Blood Pressure 130/61 136/62 152/65 H Pulse Oximetry 97 98 98 10/06/18 17:40 10/06/18 17:50 10/06/18 18:00 Temperature Pulse Rate 59 L 60 62 Respiratory Rate 16 14 15 Blood Pressure 130/63 129/61 126/59 L Pulse Oximetry 92 L 95 97 10/06/18 18:10 Temperature Pulse Rate 63 Respiratory Rate 15 Blood Pressure 127/58 L Pulse Oximetry 92 L Intake & Output 10/06/18 10/06/18 10/07/18 06:59 18:59 06:59 Intake Total 321.5 / 321.5 1610 / 1610 Output Total 1050 / 1050 1450 / 1450 Balance -728.5 / -728.5 160 / 160 Weight 87.5 kg Intake: IV 321.5 / 321.5 1250 / 1250 Cardene Inj 25 MG In NS Inj 240 250 / 250 250 / 250 ML @ 5 MG/HR 50 mls/hr IV.CONT TITRATE PRN Rx#:[id number] Activase Drip 71.5 MG In Bag/ 71.5 / 71.5 Syringe 1 EACH @ 71.5 mls/hr IV .SIG ONCE ONE Rx#:[id number] Oral 360 / 360 Output: Urine 1050 / 1050 1450 / 1450 Other: # Voids 6 Weight On Admission 87.5 kg - Routine Neurological Exam alert, speech normal CN intact MOTOR 4+/5 LUe and LLE 5/5 RUE and RLE. Objective Radiology Results: MRI brain shows right thalamic cva. No hemorrhage Laboratory Results - last 24 hr 10/05/18 10/05/18 10/05/18 21:23 21:23 21:23 WBC 6.8 RBC 5.39 Hgb 14.4 POC Hgb (Calc) 13.9 Hct 42.6 POC Hct 41.0 MCV 79.0 L MCH 26.6 L MCHC 33.6 RDW 14.9 Plt Count 191 MPV 7.7 Prelim Diff (Auto) Slide review pending Neut % (Auto) 62.4 Lymph % (Auto) 25.8 [place] % (Auto) 8.4 H Eos % (Auto) 2.4 Baso % (Auto) 1.0 Neut # (Auto) 4.3 Lymph # (Auto) 1.8 [place] # (Auto) 0.6 Eos # (Auto) 0.2 Baso # (Auto) 0.1 WBC Differential . Diff Scan Auto diff confirmed Differential Comment . PT 10.7 INR 1.1 APTT 25.1 Fibrinogen 363 POC Sodium 140 POC Potassium 3.5 L POC Chloride 105 POC BUN 20 POC Creatinine 2.2 H POC Glucose 121 H Total Creatine Kinase 46 Troponin I Less than 0.02 L Urine Color Urine Clarity Urine pH Ur Specific [place] Urine Protein Urine Glucose (UA) Urine Ketones Urine Occult Blood Urine Nitrate Urine Bilirubin Urine Urobilinogen Ur Leukocyte Esterase Urine RBC Urine WBC Micro UA Comment Ur Microscopic Review Urine Culture Comments Nasal Screen MRSA (PCR) Urine Opiates Screen Ur Barbiturates Screen Ur Amphetamines Screen U Benzodiazepines Scrn Urine Cocaine Screen U Cannabinoids Screen Blood Type Blood Type Recheck Antibody Screen 10/05/18 10/05/18 10/05/18 21:23 22:32 22:32 WBC RBC Hgb POC Hgb (Calc) Hct POC Hct MCV MCH MCHC RDW Plt Count MPV Prelim Diff (Auto) Neut % (Auto) Lymph % (Auto) [place] % (Auto) Eos % (Auto) Baso % (Auto) Neut # (Auto) Lymph # (Auto) [place] # (Auto) Eos # (Auto) Baso # (Auto) WBC Differential Diff Scan Differential Comment PT INR APTT Fibrinogen POC Sodium POC Potassium POC Chloride POC BUN POC Creatinine POC Glucose Total Creatine Kinase Troponin I Urine Color Yellow Urine Clarity Clear Urine pH 6.0 Ur Specific [place] 1.038 H Urine Protein Negative Urine Glucose (UA) Negative Urine Ketones Negative Urine Occult Blood Negative Urine Nitrate Negative Urine Bilirubin Negative Urine Urobilinogen Less than 2 Ur Leukocyte Esterase Negative Urine RBC Less than 1 Urine WBC 1 Micro UA Comment Cath-culture not ind Ur Microscopic Review Not Reportable Urine Culture Comments Cath-cult not ind Nasal Screen MRSA (PCR) Urine Opiates Screen Neg Ur Barbiturates Screen Neg Ur Amphetamines Screen Neg U Benzodiazepines Scrn Neg Urine Cocaine Screen Neg U Cannabinoids Screen Neg Blood Type O Positive Blood Type Recheck Required Antibody Screen Negative 10/06/18 00:00 WBC RBC Hgb POC Hgb (Calc) Hct POC Hct MCV MCH MCHC RDW Plt Count MPV Prelim Diff (Auto) Neut % (Auto) Lymph % (Auto) [place] % (Auto) Eos % (Auto) Baso % (Auto) Neut # (Auto) Lymph # (Auto) [place] # (Auto) Eos # (Auto) Baso # (Auto) WBC Differential Diff Scan Differential Comment PT INR APTT Fibrinogen POC Sodium POC Potassium POC Chloride POC BUN POC Creatinine POC Glucose Total Creatine Kinase Troponin I Urine Color Urine Clarity Urine pH Ur Specific [place] Urine Protein Urine Glucose (UA) Urine Ketones Urine Occult Blood Urine Nitrate Urine Bilirubin Urine Urobilinogen Ur Leukocyte Esterase Urine RBC Urine WBC Micro UA Comment Ur Microscopic Review Urine Culture Comments Nasal Screen MRSA (PCR) Not detected Urine Opiates Screen Ur Barbiturates Screen Ur Amphetamines Screen U Benzodiazepines Scrn Urine Cocaine Screen U Cannabinoids Screen Blood Type Blood Type Recheck Antibody Screen Review/Management - Review/Management Plan: follow up CT brain 24 hr post TPA
--- NOTE | 2018-10-06 23:40 | CT ---
EXAM DATE: 10/06/2018 11:35 PM EST AGE/SEX: 78 years / Male INDICATIONS: CVA, 24 hour post TPA. CLINICAL DATA: This is the patient's subsequent encounter. Patient reports that signs and symptoms h ave been present for 1 day and indicates a pain score of 0/10. MEDICAL/SURGICAL HISTORY: Cerebrovascular disease. None. RADIATION DOSE: 38.18 CTDI (mGy) COMPARISON: [facility] [place], CT HEAD W/O CONTRAST, 10/05/2018. . TECHNIQUE: CT of the head without contrast. Using automated exposure control and adjustment of the mA and/or kV according to patient size, radiation dose was kept as low as reasonably achievable to ob tain optimal diagnostic quality images. DICOM format image data is available electronically for revi ew and comparison. FINDINGS: Cerebrum: There is mild generalized atrophy and ventricles are normal given the degree of atrophy. M ild periventricular white matter change is present. No midline shift, mass lesion, hemorrhage or acu te infarction. The infarct in the right lateral thalamus documented on prior MRI is not appreciated o n this exam. No extraaxial fluid collections are seen. Posterior Fossa: The cerebellum and brainstem demonstrate no acute abnormality. The 4th ventricle is midline. The cerebellopontine angle is within normal limits. Extracranial: The visualized sinuses are clear. Skull: The calvaria is intact. No skull fracture. CONCLUSION: Stable noncontrast head CT. No acute hemorrhage is present. . Electronically signed by: Nikolay Vazquez MD Board Certified Radiologist 10/06/2018 11:39 PM EST
[2018-10-07 00:28] LABS: Baso % (Auto) 0.8 % (0.0-2.0); Eos # (Auto) 0.2 th/mm3 (0.0-0.4); Eos % (Auto) 2.7 % (0.0-4.0); Hematocrit 39.8 % (39.0-51.0); Hemoglobin 13.2 gm/dL (13.0-17.0); Lymph # (Auto) 1.3 th/mm3 (1.0-4.8); Lymph % (Auto) 21.8 % (9.0-44.0); Mean Corpuscular HGB Conc 33.2 % (32.0-36.0); Mean Corpuscular Hemoglobin 26.5 pg (27.0-34.0); Mean Corpuscular Volume 79.9 fL (80.0-100.0); Mean Platelet Volume 7.3 fL (7.0-11.0); Mono # (Auto) 0.5 th/mm3 (0.0-0.9); Neut # (Auto) 4.1 th/mm3 (1.8-7.7); Neut % (Auto) 66.7 % (16.0-70.0); Platelet Count 183 th/mm3 (150-450); Red Blood Count 4.98 mil/mm3 (4.50-5.90); Red Cell Distribution Width 15.1 % (11.6-17.2); White Blood Count 6.1 th/mm3 (4.0-11.0)
[2018-10-07 00:37] LABS: Activated Partial Thrombo Time 27.4 sec (23.4-31.7); INR 1.1 Ratio; Prothrombin Time 11.4 sec (9.8-11.6)
[2018-10-07 00:39] LABS: Alanine Aminotransferase 15 U/L (12-78); Albumin 3.2 g/dL (3.4-5.0); Anion Gap 4 meq/L (5-15); Aspartate Aminotransferase 14 U/L (15-37); Blood Urea Nitrogen 18 mg/dL (7-18); Calcium 8.4 mg/dL (8.5-10.1); Carbon Dioxide 27.7 meq/L (21.0-32.0); Chloride 112 meq/L (98-107); Cholesterol 192 mg/dL (120-200); Glomerular Filtration Rate 45 mL/min (>89); Glucose,Random 105 mg/dL (74-106); Magnesium 2.2 mg/dL (1.5-2.5); Potassium 3.7 meq/L (3.5-5.1); Sodium 144 meq/L (136-145); Triglycerides 220 mg/dL (42-150)
[2018-10-07 00:43] LABS: Alkaline Phosphatase 165 U/L (45-117); Chol/HDL Ratio 7.21 Ratio; HDL Cholesterol 26.6 mg/dL (40.0-60.0); LDL Cholesterol,Calculated 121 mg/dL (0-99); Phosphorus 3.3 mg/dL (2.5-4.9); Total Protein 6.4 g/dL (6.4-8.2)
[2018-10-07] MEDS: Sod Chloride 0.9% Inj 1,000 ML IV.CONT SCH ×2 (03:53→13:23)
[2018-10-07] MEDS: Chlorhexidine Gluconate 2% 1 Pack (2 Cloths) TOPICAL SCH (04:00)
[2018-10-07] MEDS: Lisinopril 5 MG Tablet PO SCH ×2 (09:55→23:16)
[2018-10-07] MEDS: Senna/Docusate Sodium 8.6/50 MG Tablet PO SCH ×2 (09:55→23:16)
[2018-10-07] MEDS: Famotidine PF Inj 20 MG/2 ML Vial IV.PUSH SCH ×2 (09:55→23:15)
[2018-10-07] MEDS: amLODIPine 10 MG Tablet PO SCH (09:55)
[2018-10-07 11:34] LABS: Hemoglobin 13.9 gm/dL (13.0-17.0); Mean Corpuscular Hemoglobin 27.3 pg (27.0-34.0); Mean Corpuscular Volume 80.2 fL (80.0-100.0); Mean Platelet Volume 7.5 fL (7.0-11.0); Platelet Count 176 th/mm3 (150-450); Red Blood Count 5.11 mil/mm3 (4.50-5.90); Red Cell Distribution Width 15.1 % (11.6-17.2); White Blood Count 5.8 th/mm3 (4.0-11.0)
[2018-10-07 11:53] LABS: Calcium 8.7 mg/dL (8.5-10.1); Carbon Dioxide 23.8 meq/L (21.0-32.0); Potassium 3.7 meq/L (3.5-5.1)
[2018-10-07 11:56] LABS: Chol/HDL Ratio 7.42 Ratio; HDL Cholesterol 27.6 mg/dL (40.0-60.0)
--- NOTE | 2018-10-07 12:23 | P.PNIM ---
Subjective Interval history: Patient reports he is feeling better today. He does have some gait difficulties but is overall stronger. He continues to have persistent spasm of the left upper and lower extremities. Blood pressure still not well controlled. Physical Exam Vital signs: Vital Signs 10/06/18 13:00 10/06/18 14:00 10/06/18 14:19 Temperature 97.7 F Pulse Rate 71 77 75 Respiratory Rate 31 H 31 H 31 H Blood Pressure 163/70 H Pulse Oximetry 94 L 94 L 94 L 10/06/18 15:00 10/06/18 15:29 10/06/18 15:40 Temperature Pulse Rate 75 73 77 Respiratory Rate 27 H 25 H 42 H Blood Pressure 161/70 H 170/78 H Pulse Oximetry 93 L 91 L 95 10/06/18 15:50 10/06/18 16:00 10/06/18 16:10 Temperature Pulse Rate 72 67 66 Respiratory Rate 25 H 18 16 Blood Pressure 145/66 H 141/65 H 134/63 Pulse Oximetry 93 L 94 L 96 10/06/18 16:20 10/06/18 16:30 10/06/18 16:40 Temperature 97.7 F Pulse Rate 63 61 60 Respiratory Rate 16 16 14 Blood Pressure 133/62 134/61 141/62 H Pulse Oximetry 96 95 95 10/06/18 16:50 10/06/18 17:00 10/06/18 17:10 Temperature Pulse Rate 61 59 L 61 Respiratory Rate 15 14 17 Blood Pressure 129/56 L 130/61 136/62 Pulse Oximetry 95 97 98 10/06/18 17:20 10/06/18 17:40 10/06/18 17:50 Temperature Pulse Rate 61 59 L 60 Respiratory Rate 14 16 14 Blood Pressure 152/65 H 130/63 129/61 Pulse Oximetry 98 92 L 95 10/06/18 18:00 10/06/18 18:10 10/06/18 18:20 Temperature Pulse Rate 62 63 63 Respiratory Rate 15 15 15 Blood Pressure 126/59 L 127/58 L 120/55 L Pulse Oximetry 97 92 L 91 L 10/06/18 18:30 10/06/18 18:40 10/06/18 18:50 Temperature Pulse Rate 64 64 64 Respiratory Rate 15 15 15 Blood Pressure 115/58 L 138/63 128/62 Pulse Oximetry 92 L 91 L 91 L 10/06/18 19:00 10/06/18 19:10 10/06/18 19:20 Temperature Pulse Rate 62 63 63 Respiratory Rate 15 14 14 Blood Pressure 132/63 137/63 173/65 H Pulse Oximetry 92 L 91 L 94 L 10/06/18 19:30 10/06/18 19:40 10/06/18 19:50 Temperature Pulse Rate 78 63 63 Respiratory Rate 13 15 15 Blood Pressure 150/70 H 146/59 H 144/65 H Pulse Oximetry 93 L 93 L 92 L 10/06/18 20:00 10/06/18 20:10 10/06/18 20:20 Temperature 98.1 F Pulse Rate 73 67 70 Respiratory Rate 15 21 16 Blood Pressure 161/74 H 156/70 H 160/70 H Pulse Oximetry 94 L 94 L 94 L 10/06/18 20:30 10/06/18 20:40 10/06/18 20:50 Temperature Pulse Rate 67 64 62 Respiratory Rate 34 H 26 H 33 H Blood Pressure 160/69 H 154/70 H 160/66 H Pulse Oximetry 92 L 92 L 92 L 10/06/18 21:00 10/06/18 21:10 10/06/18 21:20 Temperature Pulse Rate 62 61 81 Respiratory Rate 29 H 15 30 H Blood Pressure 158/67 H 168/70 H 163/77 H Pulse Oximetry 92 L 92 L 94 L 10/06/18 21:30 10/06/18 21:40 10/06/18 21:50 Temperature Pulse Rate 58 L 59 L 58 L Respiratory Rate 25 H 19 15 Blood Pressure 144/65 H 142/70 H 145/67 H Pulse Oximetry 92 L 93 L 93 L 10/06/18 22:00 10/06/18 22:10 10/06/18 22:20 Temperature Pulse Rate 57 L 56 L 56 L Respiratory Rate 15 15 15 Blood Pressure 131/65 124/60 123/58 L Pulse Oximetry 93 L 92 L 92 L 10/06/18 22:30 10/06/18 22:40 10/06/18 22:50 Temperature Pulse Rate 56 L 57 L 56 L Respiratory Rate 15 15 16 Blood Pressure 118/61 122/61 149/66 H Pulse Oximetry 92 L 93 L 95 10/06/18 23:00 10/06/18 23:12 10/06/18 23:22 Temperature Pulse Rate 57 L 60 57 L Respiratory Rate 16 22 13 Blood Pressure 132/64 169/72 H 154/63 H Pulse Oximetry 96 96 96 10/06/18 23:32 10/06/18 23:42 10/06/18 23:52 Temperature Pulse Rate 56 L 56 L 54 L Respiratory Rate 21 17 14 Blood Pressure 151/69 H 138/65 134/61 Pulse Oximetry 96 95 96 10/07/18 00:00 10/07/18 00:02 10/07/18 00:12 Temperature 97.4 F L Pulse Rate 51 L 55 L 55 L Respiratory Rate 14 24 18 Blood Pressure 130/62 130/62 148/67 H Pulse Oximetry 95 95 94 L 10/07/18 00:22 10/07/18 00:32 10/07/18 00:42 Temperature Pulse Rate 54 L 56 L 55 L Respiratory Rate 22 21 19 Blood Pressure 143/60 H 140/64 140/63 Pulse Oximetry 96 94 L 95 10/07/18 00:52 10/07/18 01:00 10/07/18 01:02 Temperature Pulse Rate 54 L 54 L 52 L Respiratory Rate 20 15 13 Blood Pressure 135/58 L 133/63 Pulse Oximetry 95 96 94 L 10/07/18 01:12 10/07/18 01:22 10/07/18 01:32 Temperature Pulse Rate 53 L 51 L 52 L Respiratory Rate 19 15 17 Blood Pressure 146/66 H 109/52 L 108/49 L Pulse Oximetry 95 93 L 94 L 10/07/18 01:42 10/07/18 01:52 10/07/18 02:00 Temperature Pulse Rate 53 L 53 L 54 L Respiratory Rate 14 16 15 Blood Pressure 101/49 L 111/53 L Pulse Oximetry 93 L 95 94 L 10/07/18 02:02 10/07/18 02:12 10/07/18 02:22 Temperature Pulse Rate 53 L 52 L 53 L Respiratory Rate 15 15 23 Blood Pressure 126/62 124/58 L 149/67 H Pulse Oximetry 94 L 97 96 10/07/18 02:32 10/07/18 02:42 10/07/18 02:52 Temperature Pulse Rate 52 L 52 L 54 L Respiratory Rate 15 16 20 Blood Pressure 115/53 L 115/54 L 119/59 L Pulse Oximetry 97 96 97 10/07/18 03:00 10/07/18 03:02 10/07/18 03:12 Temperature Pulse Rate 53 L 54 L 59 L Respiratory Rate 21 20 18 Blood Pressure 114/54 L 149/67 H Pulse Oximetry 97 97 99 10/07/18 03:22 10/07/18 03:32 10/07/18 03:42 Temperature Pulse Rate 52 L 53 L 53 L Respiratory Rate 15 16 15 Blood Pressure 117/56 L 118/55 L 143/65 H Pulse Oximetry 96 94 L 94 L 10/07/18 03:52 10/07/18 04:00 10/07/18 04:02 Temperature 98.2 F Pulse Rate 54 L 53 L 53 L Respiratory Rate 16 14 15 Blood Pressure 144/67 H 120/60 120/60 Pulse Oximetry 97 97 98 10/07/18 04:12 10/07/18 04:22 10/07/18 04:32 Temperature Pulse Rate 59 L 62 60 Respiratory Rate 17 18 24 Blood Pressure 176/72 H 184/81 H 163/73 H Pulse Oximetry 95 99 98 10/07/18 04:42 10/07/18 04:55 10/07/18 05:00 Temperature Pulse Rate 75 60 Respiratory Rate 35 H 27 H Blood Pressure 160/71 H 162/70 H Pulse Oximetry 88 L 96 10/07/18 05:02 10/07/18 05:12 10/07/18 05:22 Temperature Pulse Rate 58 L 62 70 Respiratory Rate 13 19 14 Blood Pressure 145/65 H 136/63 152/68 H Pulse Oximetry 96 96 95 10/07/18 05:32 10/07/18 05:42 10/07/18 05:52 Temperature Pulse Rate 59 L 65 66 Respiratory Rate 12 18 17 Blood Pressure 147/68 H 164/77 H 141/64 H Pulse Oximetry 95 95 94 L 10/07/18 06:00 10/07/18 06:02 10/07/18 06:12 Temperature Pulse Rate 61 60 60 Respiratory Rate 14 15 19 Blood Pressure 136/63 141/65 H Pulse Oximetry 94 L 94 L 94 L 10/07/18 06:22 10/07/18 06:32 10/07/18 06:42 Temperature Pulse Rate 58 L 57 L 58 L Respiratory Rate 15 16 16 Blood Pressure 128/60 132/61 129/59 L Pulse Oximetry 93 L 95 94 L 10/07/18 06:52 10/07/18 07:00 10/07/18 07:02 Temperature Pulse Rate 57 L 58 L 57 L Respiratory Rate 16 16 14 Blood Pressure 129/60 137/64 Pulse Oximetry 94 L 93 L 92 L 10/07/18 07:12 10/07/18 07:22 10/07/18 07:32 Temperature Pulse Rate 59 L 56 L 56 L Respiratory Rate 20 14 14 Blood Pressure 160/71 H 146/67 H 141/58 H Pulse Oximetry 95 94 L 96 10/07/18 07:42 10/07/18 07:52 10/07/18 08:00 Temperature 97.5 F L Pulse Rate 55 L 56 L 58 L Respiratory Rate 14 22 21 Blood Pressure 151/74 H 135/63 159/68 H Pulse Oximetry 95 94 L 96 10/07/18 08:02 10/07/18 08:12 10/07/18 08:22 Temperature Pulse Rate 66 63 61 Respiratory Rate 20 20 22 Blood Pressure 141/104 H 139/64 Pulse Oximetry 97 97 95 10/07/18 08:32 10/07/18 08:42 10/07/18 08:52 Temperature Pulse Rate 58 L 61 64 Respiratory Rate 22 22 20 Blood Pressure 165/84 H 162/72 H 158/83 H Pulse Oximetry 94 L 94 L 95 10/07/18 09:00 10/07/18 09:02 10/07/18 09:04 Temperature Pulse Rate 66 67 Respiratory Rate 18 20 Blood Pressure 180/78 H Pulse Oximetry 95 95 95 10/07/18 09:12 10/07/18 09:22 10/07/18 10:00 Temperature Pulse Rate 73 72 70 Respiratory Rate 22 20 18 Blood Pressure 174/63 H 176/81 H Pulse Oximetry 95 94 L 94 L 10/07/18 10:01 10/07/18 10:53 10/07/18 11:05 Temperature Pulse Rate 73 68 Respiratory Rate 18 20 Blood Pressure 170/72 H 149/65 H Pulse Oximetry 95 94 L 10/07/18 11:06 10/07/18 12:00 10/07/18 12:08 Temperature 97.8 F Pulse Rate 64 68 68 Respiratory Rate 23 21 22 Blood Pressure 158/69 H Pulse Oximetry 95 94 L 96 Intake & Output 10/06/18 10/07/18 10/07/18 18:59 06:59 18:59 Intake Total 1610 / 1610 1250 / 1250 Output Total 1450 / 1450 475 / 475 Balance 160 / 160 775 / 775 Weight 84.6 kg 84.6 kg Intake: IV 1250 / 1250 1250 / 1250 NS Inj 1,000 ML @ 84 mls/hr IV. 1000 / 1000 CONT .[id number] [facility] Rx#:[id number] Cardene Inj 25 MG In NS Inj 240 250 / 250 250 / 250 ML @ 5 MG/HR 50 mls/hr IV.CONT TITRATE PRN Rx#:[id number] Oral 360 / 360 Output: Urine 1450 / 1450 475 / 475 Other: # Voids 2 # Incontinent Voids 2 Narrative: GENERAL: This is a well-nourished, well-developed patient, in no apparent distress. CARDIOVASCULAR: Normal rate and regular rhythm without murmurs, gallops, or rubs. RESPIRATORY: Good respiratory efforts. Breath sounds equal and clear to auscultation bilaterally. GASTROINTESTINAL: Abdomen soft, non-tender, non-distended. Normal active bowel sounds MUSCULOSKELETAL: Extremities without cyanosis, or edema. NEURO: Alert & Oriented x4 to person, place, time, situation. Moves all ext x4. Strength is 4+ out of 5 on the left compared to 5 out of 5 on the right. Speech is clear. PSYCH: Appropriate mood and affect. Results Labs CBC & Chem 7: 10/07/18 09:59 10/07/18 09:59 Imaging Imaging: Impressions Venous Doppler Study 10/06/18 00:00 CONCLUSION: 1. The study is negative for lower extremity deep venous thrombosis. Head CT 10/06/18 21:41 CONCLUSION: Stable noncontrast head CT. No acute hemorrhage is present. . Assessment and Plan Plan 78-year-old male admitted with acute CVA. The patient has hypertension but went off his antihypertensives 2 years ago. Acute CVA -Status post TPA administration -Status post Cardene drip -PT and OT -A1c pending -MRI at this morning suggests right lateral thalamus infarct. No intracranial hemorrhage or midline shift. -Repeat head CT unremarkable. Dyslipidemia -Continue statin Hypertension -Continue Norvasc. Increase lisinopril to 10 mg twice daily -Clonidine as needed - Continue to monitor closely. CKD stage III: - Discussed with his . His CKD has been stable. - Avoid nephrotoxins. DVT GI prophylaxis -Teds SCDs -Plan to start chemoprophylaxis tomorrow if still in-house -Pepcid Can transfer out of ICU. Progress Note: Quality VTE Deep Vein Thrombosis/Pulmonary Embolism Present on Admission: No
--- NOTE | 2018-10-07 16:38 | P.PNNEU ---
Subjective Subjective Comments: Pt still weak left leg although left arm strength is improving Active Medications: Active Medications Acetaminophen (Tylenol) 650 mg PO Q6H PRN PRN Reason: PAIN 1-10 AND/OR FEVER >101F Al Hydroxide/Mg Hydroxide (Milk Of Magnesia Liq) 30 ml PO Q12H PRN PRN Reason: Mild Constipation Albuterol (Duoneb Neb (Prn)) 1 ampul NEB Q2HR NEB PRN PRN Reason: WHEEZING Amlodipine Besylate (Norvasc) 10 mg PO DAILY [facility] Last Admin: 10/07/18 09:55 Dose: 10 mg Aspirin (Aspirin) 325 mg PO DAILY [facility] Atorvastatin Calcium (Lipitor) 40 mg PO QPM [facility] Last Admin: 10/06/18 18:18 Dose: Not Given Atorvastatin Calcium (Lipitor) 10 mg PO DAILY [facility] Stop: 10/07/18 23:59 Bisacodyl (Dulcolax Supp) 10 mg RECTAL DAILY PRN PRN Reason: SEVERE CONSITIPATION Chlorhexidine Gluconate (Chlorhexidine 2% Cloth) 3 pack TOPICAL DAILY@0400 [facility] Stop: 10/11/18 03:59 Last Admin: 10/07/18 04:00 Dose: 3 pack Chlorhexidine Gluconate (Chlorhexidine 2% Cloth) 3 pack TOPICAL DAILY@0400 PRN PRN Reason: Extra cloth needed Stop: 10/11/18 03:59 Clonidine HCl (Catapres) 0.1 mg PO Q6H PRN PRN Reason: SEE LABEL COMMENTS Cyclobenzaprine HCl (Flexeril) 10 mg PO Q8H PRN PRN Reason: MUSCLE SPASM Famotidine (Pepcid Pf Inj) 20 mg IV.PUSH Q12HR [facility] Last Admin: 10/07/18 09:55 Dose: 20 mg Nicardipine HCl 25 mg/ Sodium (Chloride) 250 mls @ 50 mls/hr IV.CONT TITRATE PRN; Protocol PRN Reason: Per Protocol Last Titration: 10/06/18 19:20 Dose: Infused Lactulose (Lactulose Liq) 30 ml PO DAILY PRN PRN Reason: SEVERE CONSITIPATION Lisinopril (Prinivil) 10 mg PO BID [facility] Morphine Sulfate (Morphine Inj) 2 mg IV.PUSH Q2H PRN PRN Reason: PAIN SCALE 6 TO 10 Last Admin: 10/06/18 15:37 Dose: 2 mg Ondansetron HCl (Zofran Inj) 4 mg IV.PUSH Q6H PRN PRN Reason: NAUSEA OR VOMITING Senna/Docusate Sodium (Elise-Colace) 1 tab PO BID [facility] Last Admin: 10/07/18 09:55 Dose: 1 tab Sennosides (Senokot) 17.2 mg PO Q12H PRN PRN Reason: Moderate Constipation Sodium Chloride (Ns Flush) 2 ml IV.FLUSH BID [facility] Last Admin: 10/07/18 09:56 Dose: 2 ml Sodium Chloride (Ns Flush) 2 ml IV.FLUSH PRN PRN PRN Reason: FLUSH AFTER USING IV ACCESS Allergies/Adverse Reactions: Allergies Allergy/AdvReac Type Severity Reaction Status Date / Time No Known Allergies Allergy Verified 10/05/18 21:18 Physical Exam Vital signs: Vital Signs 10/06/18 16:40 10/06/18 16:50 10/06/18 17:00 Temperature 97.7 F Pulse Rate 60 61 59 L Respiratory Rate 14 15 14 Blood Pressure 141/62 H 129/56 L 130/61 Pulse Oximetry 95 95 97 10/06/18 17:10 10/06/18 17:20 10/06/18 17:40 Temperature Pulse Rate 61 61 59 L Respiratory Rate 17 14 16 Blood Pressure 136/62 152/65 H 130/63 Pulse Oximetry 98 98 92 L 10/06/18 17:50 10/06/18 18:00 10/06/18 18:10 Temperature Pulse Rate 60 62 63 Respiratory Rate 14 15 15 Blood Pressure 129/61 126/59 L 127/58 L Pulse Oximetry 95 97 92 L 10/06/18 18:20 10/06/18 18:30 10/06/18 18:40 Temperature Pulse Rate 63 64 64 Respiratory Rate 15 15 15 Blood Pressure 120/55 L 115/58 L 138/63 Pulse Oximetry 91 L 92 L 91 L 10/06/18 18:50 10/06/18 19:00 10/06/18 19:10 Temperature Pulse Rate 64 62 63 Respiratory Rate 15 15 14 Blood Pressure 128/62 132/63 137/63 Pulse Oximetry 91 L 92 L 91 L 10/06/18 19:20 10/06/18 19:30 10/06/18 19:40 Temperature Pulse Rate 63 78 63 Respiratory Rate 14 13 15 Blood Pressure 173/65 H 150/70 H 146/59 H Pulse Oximetry 94 L 93 L 93 L 10/06/18 19:50 10/06/18 20:00 10/06/18 20:10 Temperature 98.1 F Pulse Rate 63 73 67 Respiratory Rate 15 15 21 Blood Pressure 144/65 H 161/74 H 156/70 H Pulse Oximetry 92 L 94 L 94 L 10/06/18 20:20 10/06/18 20:30 10/06/18 20:40 Temperature Pulse Rate 70 67 64 Respiratory Rate 16 34 H 26 H Blood Pressure 160/70 H 160/69 H 154/70 H Pulse Oximetry 94 L 92 L 92 L 10/06/18 20:50 10/06/18 21:00 10/06/18 21:10 Temperature Pulse Rate 62 62 61 Respiratory Rate 33 H 29 H 15 Blood Pressure 160/66 H 158/67 H 168/70 H Pulse Oximetry 92 L 92 L 92 L 10/06/18 21:20 10/06/18 21:30 10/06/18 21:40 Temperature Pulse Rate 81 58 L 59 L Respiratory Rate 30 H 25 H 19 Blood Pressure 163/77 H 144/65 H 142/70 H Pulse Oximetry 94 L 92 L 93 L 10/06/18 21:50 10/06/18 22:00 10/06/18 22:10 Temperature Pulse Rate 58 L 57 L 56 L Respiratory Rate 15 15 15 Blood Pressure 145/67 H 131/65 124/60 Pulse Oximetry 93 L 93 L 92 L 10/06/18 22:20 10/06/18 22:30 10/06/18 22:40 Temperature Pulse Rate 56 L 56 L 57 L Respiratory Rate 15 15 15 Blood Pressure 123/58 L 118/61 122/61 Pulse Oximetry 92 L 92 L 93 L 10/06/18 22:50 10/06/18 23:00 10/06/18 23:12 Temperature Pulse Rate 56 L 57 L 60 Respiratory Rate 16 16 22 Blood Pressure 149/66 H 132/64 169/72 H Pulse Oximetry 95 96 96 10/06/18 23:22 10/06/18 23:32 10/06/18 23:42 Temperature Pulse Rate 57 L 56 L 56 L Respiratory Rate 13 21 17 Blood Pressure 154/63 H 151/69 H 138/65 Pulse Oximetry 96 96 95 10/06/18 23:52 10/07/18 00:00 10/07/18 00:02 Temperature 97.4 F L Pulse Rate 54 L 51 L 55 L Respiratory Rate 14 14 24 Blood Pressure 134/61 130/62 130/62 Pulse Oximetry 96 95 95 10/07/18 00:12 10/07/18 00:22 10/07/18 00:32 Temperature Pulse Rate 55 L 54 L 56 L Respiratory Rate 18 22 21 Blood Pressure 148/67 H 143/60 H 140/64 Pulse Oximetry 94 L 96 94 L 10/07/18 00:42 10/07/18 00:52 10/07/18 01:00 Temperature Pulse Rate 55 L 54 L 54 L Respiratory Rate 19 20 15 Blood Pressure 140/63 135/58 L Pulse Oximetry 95 95 96 10/07/18 01:02 10/07/18 01:12 10/07/18 01:22 Temperature Pulse Rate 52 L 53 L 51 L Respiratory Rate 13 19 15 Blood Pressure 133/63 146/66 H 109/52 L Pulse Oximetry 94 L 95 93 L 10/07/18 01:32 10/07/18 01:42 10/07/18 01:52 Temperature Pulse Rate 52 L 53 L 53 L Respiratory Rate 17 14 16 Blood Pressure 108/49 L 101/49 L 111/53 L Pulse Oximetry 94 L 93 L 95 10/07/18 02:00 10/07/18 02:02 10/07/18 02:12 Temperature Pulse Rate 54 L 53 L 52 L Respiratory Rate 15 15 15 Blood Pressure 126/62 124/58 L Pulse Oximetry 94 L 94 L 97 10/07/18 02:22 10/07/18 02:32 10/07/18 02:42 Temperature Pulse Rate 53 L 52 L 52 L Respiratory Rate 23 15 16 Blood Pressure 149/67 H 115/53 L 115/54 L Pulse Oximetry 96 97 96 10/07/18 02:52 10/07/18 03:00 10/07/18 03:02 Temperature Pulse Rate 54 L 53 L 54 L Respiratory Rate 20 21 20 Blood Pressure 119/59 L 114/54 L Pulse Oximetry 97 97 97 10/07/18 03:12 10/07/18 03:22 10/07/18 03:32 Temperature Pulse Rate 59 L 52 L 53 L Respiratory Rate 18 15 16 Blood Pressure 149/67 H 117/56 L 118/55 L Pulse Oximetry 99 96 94 L 10/07/18 03:42 10/07/18 03:52 10/07/18 04:00 Temperature 98.2 F Pulse Rate 53 L 54 L 53 L Respiratory Rate 15 16 14 Blood Pressure 143/65 H 144/67 H 120/60 Pulse Oximetry 94 L 97 97 10/07/18 04:02 10/07/18 04:12 10/07/18 04:22 Temperature Pulse Rate 53 L 59 L 62 Respiratory Rate 15 17 18 Blood Pressure 120/60 176/72 H 184/81 H Pulse Oximetry 98 95 99 10/07/18 04:32 10/07/18 04:42 10/07/18 04:55 Temperature Pulse Rate 60 75 Respiratory Rate 24 35 H Blood Pressure 163/73 H 160/71 H 162/70 H Pulse Oximetry 98 88 L 10/07/18 05:00 10/07/18 05:02 10/07/18 05:12 Temperature Pulse Rate 60 58 L 62 Respiratory Rate 27 H 13 19 Blood Pressure 145/65 H 136/63 Pulse Oximetry 96 96 96 10/07/18 05:22 10/07/18 05:32 10/07/18 05:42 Temperature Pulse Rate 70 59 L 65 Respiratory Rate 14 12 18 Blood Pressure 152/68 H 147/68 H 164/77 H Pulse Oximetry 95 95 95 10/07/18 05:52 10/07/18 06:00 10/07/18 06:02 Temperature Pulse Rate 66 61 60 Respiratory Rate 17 14 15 Blood Pressure 141/64 H 136/63 Pulse Oximetry 94 L 94 L 94 L 10/07/18 06:12 10/07/18 06:22 10/07/18 06:32 Temperature Pulse Rate 60 58 L 57 L Respiratory Rate 19 15 16 Blood Pressure 141/65 H 128/60 132/61 Pulse Oximetry 94 L 93 L 95 10/07/18 06:42 10/07/18 06:52 10/07/18 07:00 Temperature Pulse Rate 58 L 57 L 58 L Respiratory Rate 16 16 16 Blood Pressure 129/59 L 129/60 Pulse Oximetry 94 L 94 L 93 L 10/07/18 07:02 10/07/18 07:12 10/07/18 07:22 Temperature Pulse Rate 57 L 59 L 56 L Respiratory Rate 14 20 14 Blood Pressure 137/64 160/71 H 146/67 H Pulse Oximetry 92 L 95 94 L 10/07/18 07:32 10/07/18 07:42 10/07/18 07:52 Temperature Pulse Rate 56 L 55 L 56 L Respiratory Rate 14 14 22 Blood Pressure 141/58 H 151/74 H 135/63 Pulse Oximetry 96 95 94 L 10/07/18 08:00 10/07/18 08:02 10/07/18 08:12 Temperature 97.5 F L Pulse Rate 58 L 66 63 Respiratory Rate 21 20 20 Blood Pressure 159/68 H 141/104 H Pulse Oximetry 96 97 97 10/07/18 08:22 10/07/18 08:32 10/07/18 08:42 Temperature Pulse Rate 61 58 L 61 Respiratory Rate 22 22 22 Blood Pressure 139/64 165/84 H 162/72 H Pulse Oximetry 95 94 L 94 L 10/07/18 08:52 10/07/18 09:00 10/07/18 09:02 Temperature Pulse Rate 64 66 67 Respiratory Rate 20 18 20 Blood Pressure 158/83 H 180/78 H Pulse Oximetry 95 95 95 10/07/18 09:04 10/07/18 09:12 10/07/18 09:22 Temperature Pulse Rate 73 72 Respiratory Rate 22 20 Blood Pressure 174/63 H 176/81 H Pulse Oximetry 95 95 94 L 10/07/18 10:00 10/07/18 10:01 10/07/18 10:53 Temperature Pulse Rate 70 73 68 Respiratory Rate 18 18 20 Blood Pressure 170/72 H Pulse Oximetry 94 L 95 94 L 10/07/18 11:05 10/07/18 11:06 10/07/18 12:00 Temperature 97.8 F Pulse Rate 64 68 Respiratory Rate 23 21 Blood Pressure 149/65 H Pulse Oximetry 95 94 L 10/07/18 12:08 10/07/18 16:00 Temperature 98.3 F Pulse Rate 68 74 Respiratory Rate 22 20 Blood Pressure 158/69 H 177/78 H Pulse Oximetry 96 96 Intake & Output 10/06/18 10/07/18 10/07/18 18:59 06:59 18:59 Intake Total 1610 / 1610 1250 / 1250 400 / 400 Output Total 1450 / 1450 475 / 475 400 / 400 Balance 160 / 160 775 / 775 0 / 0 Weight 84.6 kg 84.6 kg Intake: IV 1250 / 1250 1250 / 1250 400 / 400 NS Inj 1,000 ML @ 84 mls/hr IV. 1000 / 1000 400 / 400 CONT .[id number] [facility] Rx#:[id number] Cardene Inj 25 MG In NS Inj 240 250 / 250 250 / 250 ML @ 5 MG/HR 50 mls/hr IV.CONT TITRATE PRN Rx#:[id number] Oral 360 / 360 Output: Urine 1450 / 1450 475 / 475 400 / 400 Other: # Voids 2 # Incontinent Voids 2 - Routine Neurological Exam alert, speech normal CN intact MOTOR--4+/5 RUE. 4/5 RLE 5/5 LUE and LLE Objective Laboratory Results - last 24 hr 10/07/18 10/07/18 10/07/18 00:12 00:12 00:12 WBC 6.1 RBC 4.98 Hgb 13.2 Hct 39.8 MCV 79.9 L MCH 26.5 L MCHC 33.2 RDW 15.1 Plt Count 183 MPV 7.3 Neut % (Auto) 66.7 Lymph % (Auto) 21.8 [place] % (Auto) 8.0 Eos % (Auto) 2.7 Baso % (Auto) 0.8 Neut # (Auto) 4.1 Lymph # (Auto) 1.3 [place] # (Auto) 0.5 Eos # (Auto) 0.2 Baso # (Auto) 0.0 WBC Differential . Differential Comment Auto diff final PT 11.4 INR 1.1 APTT 27.4 Sodium 144 Potassium 3.7 Chloride 112 H Carbon Dioxide 27.7 Anion Gap 4 L BUN 18 Creatinine 1.50 H Estimated GFR 45 L Random Glucose 105 Calcium 8.4 L Phosphorus 3.3 Magnesium 2.2 Total Bilirubin 0.5 AST 14 L ALT 15 Alkaline Phosphatase 165 H Total Protein 6.4 Albumin 3.2 L Triglycerides 220 H Cholesterol 192 LDL Cholesterol, Calc 121 H HDL Cholesterol 26.6 L Cholesterol/HDL Ratio 7.21 10/07/18 10/07/18 09:59 09:59 WBC 5.8 RBC 5.11 Hgb 13.9 Hct 41.0 MCV 80.2 MCH 27.3 MCHC 34.0 RDW 15.1 Plt Count 176 MPV 7.5 Neut % (Auto) Lymph % (Auto) [place] % (Auto) Eos % (Auto) Baso % (Auto) Neut # (Auto) Lymph # (Auto) [place] # (Auto) Eos # (Auto) Baso # (Auto) WBC Differential Differential Comment PT INR APTT Sodium 143 Potassium 3.7 Chloride 110 H Carbon Dioxide 23.8 Anion Gap 9 BUN 19 H Creatinine 1.49 H Estimated GFR 46 L Random Glucose 113 H Calcium 8.7 Phosphorus Magnesium Total Bilirubin AST ALT Alkaline Phosphatase Total Protein Albumin Triglycerides 237 H Cholesterol 205 H LDL Cholesterol, Calc 130 H HDL Cholesterol 27.6 L Cholesterol/HDL Ratio 7.42 Diagnostic Tests: CT brain 24 hr post tpa--stable with no hemorrhage Review/Management - Review/Management Plan: start asa 325 mg daily, statin monitor cardiac telemetry to r/o afib 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
[2018-10-07 16:42] LABS: Hemoglobin A1c 5.2 % (4.3-6.0)
[2018-10-07] MEDS: Aspirin 325 MG Tablet PO SCH (17:22)
[2018-10-08] MEDS: Chlorhexidine Gluconate 2% 1 Pack (2 Cloths) TOPICAL SCH (03:55)
[2018-10-08] MEDS: Senna/Docusate Sodium 8.6/50 MG Tablet PO SCH ×2 (08:07→20:54)
[2018-10-08] MEDS: Aspirin 325 MG Tablet PO SCH (08:07)
[2018-10-08] MEDS: Lisinopril 5 MG Tablet PO SCH ×2 (08:08→20:54)
[2018-10-08] MEDS: Famotidine PF Inj 20 MG/2 ML Vial IV.PUSH SCH ×2 (08:08→20:54)
[2018-10-08] MEDS: amLODIPine 10 MG Tablet PO SCH ×2 (08:08→15:40)
[2018-10-08 09:48] LABS: Hematocrit 43.8 % (39.0-51.0); Hemoglobin 14.6 gm/dL (13.0-17.0); Mean Corpuscular HGB Conc 33.4 % (32.0-36.0); Mean Corpuscular Hemoglobin 26.9 pg (27.0-34.0); Mean Corpuscular Volume 80.6 fL (80.0-100.0); Mean Platelet Volume 7.8 fL (7.0-11.0); Platelet Count 174 th/mm3 (150-450); Red Blood Count 5.44 mil/mm3 (4.50-5.90); Red Cell Distribution Width 15.3 % (11.6-17.2); White Blood Count 4.7 th/mm3 (4.0-11.0)
[2018-10-08 10:08] LABS: Carbon Dioxide 24.8 meq/L (21.0-32.0); Potassium 3.9 meq/L (3.5-5.1)
--- NOTE | 2018-10-08 13:49 | P.PNIM ---
Subjective Interval history: Patient reports he is doing okay today. Still has some issues with gait. He is participating with physical therapy. Left lower extremity spasm pretty much resolved. Physical Exam Vital signs: Vital Signs 10/07/18 16:00 10/07/18 20:00 10/08/18 00:00 Temperature 98.3 F 97.6 F 97.5 F L Pulse Rate 74 68 59 L Respiratory Rate 20 19 20 Blood Pressure 177/78 H 158/90 H 153/74 H Pulse Oximetry 96 92 L 94 L 10/08/18 00:04 10/08/18 04:00 10/08/18 07:50 Temperature 97.8 F 98.1 F Pulse Rate 59 L 57 L Respiratory Rate 20 20 Blood Pressure 161/74 H 167/81 H Pulse Oximetry 92 L 94 L 96 10/08/18 08:00 10/08/18 09:58 10/08/18 11:57 Temperature Pulse Rate 61 Respiratory Rate 18 Blood Pressure Pulse Oximetry 96 96 10/08/18 12:00 Temperature 97.7 F Pulse Rate 97 H Respiratory Rate 20 Blood Pressure 167/74 H Pulse Oximetry 98 Intake & Output 10/07/18 10/08/18 10/08/18 18:59 06:59 18:59 Intake Total 400 / 400 221 / 221 Output Total 400 / 400 425 / 425 250 / 250 Balance 0 / 0 -204 / -204 -250 / -250 Weight 84.6 kg 88.33 kg Intake: IV 400 / 400 NS Inj 1,000 ML @ 84 mls/hr IV. 400 / 400 CONT .[id number] [facility] Rx#:[id number] Oral 221 / 221 Output: Urine 400 / 400 425 / 425 250 / 250 Other: # Voids 2 # Incontinent Voids 2 Date of Last Bowel Movement 10/05/18 Narrative: GENERAL: This is a well-nourished, well-developed patient, in no apparent distress. CARDIOVASCULAR: Normal rate and regular rhythm without murmurs, gallops, or rubs. RESPIRATORY: Good respiratory efforts. Breath sounds equal and clear to auscultation bilaterally. GASTROINTESTINAL: Abdomen soft, non-tender, non-distended. Normal active bowel sounds MUSCULOSKELETAL: Extremities without cyanosis, or edema. NEURO: Alert & Oriented x4 to person, place, time, situation. Moves all ext x4. Strength is 4+ out of 5 on the left compared to 5 out of 5 on the right. Speech is clear. PSYCH: Appropriate mood and affect. Results Labs CBC & Chem 7: 10/08/18 08:24 10/08/18 08:24 Assessment and Plan Plan 78-year-old male admitted with acute CVA. The patient has hypertension but went off his antihypertensives 2 years ago. Acute CVA -Status post TPA administration -Status post Cardene drip -PT and OT -A1c 5.2 -MRI suggests right lateral thalamus infarct. No intracranial hemorrhage or midline shift. -Repeat head CT unremarkable. Medicine patient started on aspirin 325 mg per neurology. -Will need ongoing surveillance for A. fib outpatient. 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 Dyslipidemia -Continue statin Hypertension -Continue Norvasc. Continue with increased dose of lisinopril 10 mg twice daily. Need to continue to titrate antihypertensives. -Clonidine as needed - Continue to monitor closely. CKD stage III: - Discussed with his . His CKD has been stable. - Avoid nephrotoxins. DVT GI prophylaxis -Teds SCDs -Pepcid Disposition: [facility] once accepted. Progress Note: Quality VTE Deep Vein Thrombosis/Pulmonary Embolism Present on Admission: No
--- NOTE | 2018-10-08 20:31 | P.CONREH ---
History of Present Illness Service: Physical medicine and rehabilitation Consult date: 10/08/18 Reason for Consult: Comprehensive rehabilitation evaluation Primary Care Provider: UNKNOWN History of Present Illness: Don Cardozo is a 78-year-old [id number] male with past medical history hypertension and hyperlipidemia admitted to [facility] 10/05/18 with left- sided weakness. NIH scale was 4. He received IV TPA per protocol. Head CT 10/05 showed no acute hemorrhage are visualized stroke. Atrophy and chronic small vessel ischemic changes. Brain MRI 10/06/18 showed focal signal abnormality in the right lateral thalamus on the diffusion-weighted images indicating acute infarct, mild cerebral atrophy , mild periventricular and subcortical white matter small vessel ischemic changes bilaterally with no acute hemorrhage, midline shift mass-effect or extra -axial fluid collection. Patient has been started on aspirin 325 mg per neurology recommendations and follow-up with cardiology for possible loop recorder is recommended. Norvasc has been continued and lisinopril has been increased. Patient is receiving as needed clonidine and medications are being titrated. Review of Systems Constitutional: Denies fatigue Eyes: Denies double vision Ears, Nose, Mouth, and Throat: Reports abnormal hearing, Reports dry mouth, Denies difficulty swallowing, Denies dizziness Cardiovascular: Denies chest pain, Denies lightheadedness Respiratory: Reports shortness of breath with activity, Denies shortness of breath Gastrointestinal: Reports constipation, Denies abdominal pain Genitourinary: Reports urinary urgency, Denies urinary incontinence Musculoskeletal: Denies back pain Skin/Breast: Denies sores Neurologic: Reports localized weakness (Left upper and lower extremity), Denies headache(s), Denies tingling/numbness/burning sensations Psychiatric: Denies confusion Endocrine: Denies increased thirst Hematologic/Lymphatic: Denies easy bruising Allergic/Immunologic: Denies throat swelling PMFSH - History History Provided By: Patient - Medical History Medical History: Medical History (Last Reviewed 10/09/18 @ 16:14 by Ana M Esparza MD) Hiatal hernia High cholesterol Hypertension - Surgical History Surgical History: Surgical History (Last Reviewed 10/09/18 @ 16:14 by Ana M Esparza MD) Hx of tonsillectomy - Social History I have reviewed the patient's Social History: Yes - Tobacco History Second Hand Smoke Exposure: No Smoking Status: Former smoker - Alcohol History How Often Do You Have a Drink Containing Alcohol: Monthly or less - Substance Use History Substance History: No History of Abuse - Travel History Recent Travel in the [place] Within the Last 8 Weeks: No Recent Travel Out of the Country Within the Last 8 Weeks: No - Immunization History Tetanus Immunization: <5 Years Hx Influenza Vaccine This Season: Yes Medications and Allergies Active Medications: Active Medications Acetaminophen (Tylenol) 650 mg PO Q6H PRN PRN Reason: PAIN 1-10 AND/OR FEVER >101F Al Hydroxide/Mg Hydroxide (Milk Of Carolyn Saini) 30 ml PO Q12H PRN PRN Reason: Mild Constipation Albuterol (Duoneb Neb (Prn)) 1 ampul NEB Q2HR NEB PRN PRN Reason: WHEEZING Amlodipine Besylate (Norvasc) 10 mg PO DAILY [facility] Last Admin: 10/08/18 15:40 Dose: 10 mg Aspirin (Aspirin) 325 mg PO DAILY [facility] Last Admin: 10/08/18 08:07 Dose: 325 mg Atorvastatin Calcium (Lipitor) 40 mg PO QPM [facility] Last Admin: 10/08/18 17:47 Dose: 40 mg Bisacodyl (Dulcolax Supp) 10 mg RECTAL DAILY PRN PRN Reason: SEVERE CONSITIPATION Chlorhexidine Gluconate (Chlorhexidine 2% Cloth) 3 pack TOPICAL DAILY@0400 [facility] Stop: 10/11/18 03:59 Last Admin: 10/08/18 03:55 Dose: Not Given Chlorhexidine Gluconate (Chlorhexidine 2% Cloth) 3 pack TOPICAL DAILY@0400 PRN PRN Reason: Extra cloth needed Stop: 10/11/18 03:59 Clonidine HCl (Catapres) 0.1 mg PO Q6H PRN PRN Reason: SEE LABEL COMMENTS Last Admin: 10/08/18 12:02 Dose: 0.1 mg Cyclobenzaprine HCl (Flexeril) 10 mg PO Q8H PRN PRN Reason: MUSCLE SPASM Last Admin: 10/07/18 18:49 Dose: 10 mg Famotidine (Pepcid Pf Inj) 20 mg IV.PUSH Q12HR [facility] Last Admin: 10/08/18 08:08 Dose: 20 mg Nicardipine HCl 25 mg/ Sodium (Chloride) 250 mls @ 50 mls/hr IV.CONT TITRATE PRN; Protocol PRN Reason: Per Protocol Last Titration: 10/06/18 19:20 Dose: Infused Lactulose (Lactulose Liq) 30 ml PO DAILY PRN PRN Reason: SEVERE CONSITIPATION Last Admin: 10/08/18 18:01 Dose: 30 ml Lisinopril (Prinivil) 10 mg PO BID [facility] Last Admin: 10/08/18 08:08 Dose: 10 mg Morphine Sulfate (Morphine Inj) 2 mg IV.PUSH Q2H PRN PRN Reason: PAIN SCALE 6 TO 10 Last Admin: 10/06/18 15:37 Dose: 2 mg Ondansetron HCl (Zofran Inj) 4 mg IV.PUSH Q6H PRN PRN Reason: NAUSEA OR VOMITING Senna/Docusate Sodium (Elise-Colace) 1 tab PO BID [facility] Last Admin: 10/08/18 08:07 Dose: 1 tab Sennosides (Senokot) 17.2 mg PO Q12H PRN PRN Reason: Moderate Constipation Sodium Chloride (Ns Flush) 2 ml IV.FLUSH BID [facility] Last Admin: 10/08/18 08:08 Dose: 2 ml Sodium Chloride (Ns Flush) 2 ml IV.FLUSH PRN PRN PRN Reason: FLUSH AFTER USING IV ACCESS Allergies Allergy/AdvReac Type Severity Reaction Status Date / Time No Known Allergies Allergy Verified 10/05/18 21:18 Home Medications Medication Instructions Recorded Confirmed Type amlodipine 10 mg PO DAILY 10/06/18 10/06/18 History atorvastatin 40 mg PO QPM 10/06/18 10/06/18 History furosemide DAILY 10/06/18 History Exam - Physical Examination Vital Signs / I&O: Vital Signs 10/08/18 00:00 10/08/18 00:04 10/08/18 04:00 Temperature 97.5 F L 97.8 F Pulse Rate 59 L 59 L Respiratory Rate 20 20 Blood Pressure 153/74 H 161/74 H Pulse Oximetry 94 L 92 L 94 L 10/08/18 07:50 10/08/18 08:00 10/08/18 09:58 Temperature 98.1 F Pulse Rate 57 L 61 Respiratory Rate 20 18 Blood Pressure 167/81 H Pulse Oximetry 96 96 10/08/18 11:57 10/08/18 12:00 10/08/18 15:35 Temperature 97.7 F 98.2 F Pulse Rate 97 H 74 Respiratory Rate 20 20 Blood Pressure 167/74 H 169/76 H Pulse Oximetry 96 98 95 10/08/18 16:12 Temperature Pulse Rate 54 L Respiratory Rate Blood Pressure Pulse Oximetry Intake & Output 10/08/18 10/08/18 10/09/18 06:59 18:59 06:59 Intake Total 221 / 221 Output Total 425 / 425 250 / 250 Balance -204 / -204 -250 / -250 Weight 88.33 kg Intake: Oral 221 / 221 Output: Urine 425 / 425 250 / 250 Other: # Voids 2 4 # Incontinent Voids 2 Date of Last Bowel Movement 10/05/18 Intake & Output 10/06/18 10/07/18 10/08/18 10/09/18 06:59 06:59 06:59 06:59 Intake Total 321.5 / 321.5 2860 / 2860 621 / 621 Output Total 1050 / 1050 1925 / 1925 825 / 825 250 / 250 Balance -728.5 / -728.5 935 / 935 -204 / -204 -250 / -250 Weight 87.5 kg 84.6 kg 88.33 kg General: No acute distress, Other (Family and friends at bedside) Respiratory: Lungs CTA, Non-labored respirations, BS equal Gastrointestinal: Positive bowel sounds, Non-distended, Non-tender Date of Last Bowel Movement: 10/05/18 Cardiovascular: Normal rate, No edema, Regular rhythm Skin: No rash Musculoskeletal: ROM (Within functional limits), Tenderness (No calf tenderness) Psychiatric: Cooperative, Appropriate mood & affect - Neurologic Orientation: oriented to: Self, Place, Time, Situation Neurologic: Cranial nerves (Intact 2 through 12), Visual [place] (Intact to confrontation testing), Speech (Intelligible with no word finding difficulties or paraphasic errors), Neglect (None noted with line bisection) Motor: Right Upper Extremity (5/5), Left Upper Extremity (4/5), Right Lower Extremity (5/5), Left Lower Extremity (4+/5) Spasticity: None noted Sensory: Intact to light touch in both upper and lower extremities Babinski: Positive (Equivocal left; downgoing right) Clonus: Negative Results - Labs CBC & Chem 7: 10/09/18 07:04 10/09/18 07:04 Labs: Laboratory Results - last 24 hr 10/08/18 10/08/18 08:24 08:24 WBC 4.7 RBC 5.44 Hgb 14.6 Hct 43.8 MCV 80.6 MCH 26.9 L MCHC 33.4 RDW 15.3 Plt Count 174 MPV 7.8 Sodium 141 Potassium 3.9 Chloride 107 Carbon Dioxide 24.8 Anion Gap 9 BUN 20 H Creatinine 1.54 H Estimated GFR 44 L Random Glucose 84 Calcium 9.0 Assessment and Plan (1) Acute cerebrovascular accident Status: Acute Code(s): I63.9 - Cerebral infarction, unspecified (2) Impaired mobility and activities of daily living Status: Acute Code(s): Z74.09 - Other reduced mobility (3) Hypertension Status: Acute Code(s): I10 - Essential (primary) hypertension (4) Hyperlipemia Status: Acute Code(s): E78.5 - Hyperlipidemia, unspecified - Plan Assessment: 1. 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 Impaired mobility and ADLs due to above 3. Hypertension 4. Hyperlipidemia Recommendations: 1. Peer to peer review was requested but insurance company physician did not make contact with the undersigned as scheduled 10/08/17 at 12:00. Case management to readdress peer to peer with insurance carrier. 2. Continue to mobilize with PT. Patient took 3 steps and balance is poor. Requires moderate to maximal assistance for transfers 3. OT addressing ADL's and now minimal assistance for grooming, moderate assistance for upper body dressing and dependent for lower body dressing 4. Speech therapy has evaluated swallow and patient is tolerating regular diet with thin liquids 5. Patient will benefit from a short course of inpatient rehabilitation and maximize mobility, continue to monitor hypertension and adjust medications and educate family to decrease fall risk 6. Will continue to follow while hospitalized on is appropriate at discharge Thank you for this consult (3) Hypertension Qualifiers: Hypertension type: unspecified Qualified Code(s): I10 - Essential (primary) hypertension
[2018-10-09] MEDS: Chlorhexidine Gluconate 2% 1 Pack (2 Cloths) TOPICAL SCH (07:40)
[2018-10-09 08:05] LABS: Hematocrit 41.9 % (39.0-51.0); Mean Corpuscular HGB Conc 33.3 % (32.0-36.0); Mean Corpuscular Hemoglobin 26.6 pg (27.0-34.0); Mean Platelet Volume 7.6 fL (7.0-11.0); Platelet Count 176 th/mm3 (150-450); Red Blood Count 5.24 mil/mm3 (4.50-5.90); Red Cell Distribution Width 14.7 % (11.6-17.2); White Blood Count 5.3 th/mm3 (4.0-11.0)
[2018-10-09 08:32] LABS: Calcium 8.6 mg/dL (8.5-10.1); Carbon Dioxide 24.5 meq/L (21.0-32.0); Potassium 3.8 meq/L (3.5-5.1)
[2018-10-09] MEDS: Lisinopril 5 MG Tablet PO SCH (08:38)
[2018-10-09] MEDS: amLODIPine 10 MG Tablet PO SCH (08:38)
[2018-10-09] MEDS: Aspirin 325 MG Tablet PO SCH (08:39)
[2018-10-09] MEDS: Senna/Docusate Sodium 8.6/50 MG Tablet PO SCH ×2 (08:39→20:37)
[2018-10-09] MEDS: Famotidine PF Inj 20 MG/2 ML Vial IV.PUSH SCH ×2 (08:39→20:37)
--- NOTE | 2018-10-09 11:45 | P.PNIM ---
Subjective Interval history: Patient reports he is feeling stronger. He states that he ambulated to the bathroom last night and did not request assistance. Physical Exam Vital signs: Vital Signs 10/08/18 11:57 10/08/18 12:00 10/08/18 15:35 Temperature 97.7 F 98.2 F Pulse Rate 97 H 74 Respiratory Rate 20 20 Blood Pressure 167/74 H 169/76 H Pulse Oximetry 96 98 95 10/08/18 16:12 10/08/18 20:00 10/09/18 00:00 Temperature 97.8 F 97.9 F Pulse Rate 54 L 81 67 Respiratory Rate 18 18 Blood Pressure 166/79 H 159/86 H Pulse Oximetry 95 95 10/09/18 00:05 10/09/18 04:00 10/09/18 05:02 Temperature 97.7 F Pulse Rate 63 68 64 Respiratory Rate 18 Blood Pressure 138/63 Pulse Oximetry 95 10/09/18 07:50 10/09/18 08:18 10/09/18 11:04 Temperature 97.4 F L Pulse Rate 64 Respiratory Rate 18 Blood Pressure 166/77 H Pulse Oximetry 97 95 95 Intake & Output 10/08/18 10/09/18 10/09/18 18:59 06:59 18:59 Output Total 250 / 250 Balance -250 / -250 Output: Urine 250 / 250 Other: # Voids 4 Date of Last Bowel Movement 10/05/18 10/08/18 # Bowel Movements 2 Narrative: GENERAL: This is a well-nourished, well-developed patient, in no apparent distress. CARDIOVASCULAR: Normal rate and regular rhythm without murmurs, gallops, or rubs. RESPIRATORY: Good respiratory efforts. Breath sounds equal and clear to auscultation bilaterally. GASTROINTESTINAL: Abdomen soft, non-tender, non-distended. Normal active bowel sounds MUSCULOSKELETAL: Extremities without cyanosis, or edema. NEURO: Alert & Oriented x4 to person, place, time, situation. Moves all ext x4. Strength is 4+ out of 5 on the left compared to 5 out of 5 on the right. Speech is clear. PSYCH: Appropriate mood and affect. Results Labs CBC & Chem 7: 10/09/18 07:04 10/09/18 07:04 Assessment and Plan Plan 78-year-old male admitted with acute CVA. The patient has hypertension but went off his antihypertensives 2 years ago. Acute CVA -Status post TPA administration -Status post Cardene drip -PT and OT -A1c 5.2 -MRI suggests right lateral thalamus infarct. No intracranial hemorrhage or midline shift. -Repeat head CT unremarkable. Medicine patient started on aspirin 325 mg per neurology. -Will need ongoing surveillance for A. fib outpatient. Patient will follow-up with his marketing programs specialist Dr. Jorge outpatient. Patient reports he is feeling stronger. Will have physical therapy reevaluate him. If ambulation significantly improved, may consider discharge home with home health. Dyslipidemia -Continue statin Hypertension -Continue Norvasc. Continue with increased dose of lisinopril 10 mg twice daily. Need to continue to titrate antihypertensives. -Clonidine as needed - Continue to monitor closely. CKD stage III: - Discussed with his . His CKD has been stable. - Avoid nephrotoxins. DVT GI prophylaxis -Teds SCDs -Pepcid Disposition: [facility] following. Patient reports he is getting stronger. Will have PT reevaluate him. Progress Note: Quality VTE Deep Vein Thrombosis/Pulmonary Embolism Present on Admission: No
[2018-10-09] MEDS: Lisinopril 20 MG Tablet PO SCH (20:37)
[2018-10-10] MEDS: Chlorhexidine Gluconate 2% 1 Pack (2 Cloths) TOPICAL SCH (06:14)
[2018-10-10 07:12] LABS: Hematocrit 40.8 % (39.0-51.0); Hemoglobin 14.1 gm/dL (13.0-17.0); Mean Corpuscular HGB Conc 34.5 % (32.0-36.0); Mean Corpuscular Volume 78.4 fL (80.0-100.0); Mean Platelet Volume 7.4 fL (7.0-11.0); Platelet Count 186 th/mm3 (150-450); Red Blood Count 5.21 mil/mm3 (4.50-5.90); Red Cell Distribution Width 14.8 % (11.6-17.2); White Blood Count 5.3 th/mm3 (4.0-11.0)
[2018-10-10 07:43] LABS: Calcium 9.1 mg/dL (8.5-10.1); Carbon Dioxide 24.5 meq/L (21.0-32.0); Potassium 4.1 meq/L (3.5-5.1)
[2018-10-10] MEDS: amLODIPine 10 MG Tablet PO SCH (09:37)
[2018-10-10] MEDS: Lisinopril 20 MG Tablet PO SCH ×2 (09:37→22:05)
[2018-10-10] MEDS: Aspirin 325 MG Tablet PO SCH (09:37)
[2018-10-10] MEDS: Famotidine PF Inj 20 MG/2 ML Vial IV.PUSH SCH ×2 (09:37→22:05)
[2018-10-10] MEDS: Senna/Docusate Sodium 8.6/50 MG Tablet PO SCH ×2 (09:37→22:06)
--- NOTE | 2018-10-10 17:43 | P.PNIM ---
Subjective Interval history: Patient seen with OT today. He is not stable on his feet and is high risk for fall. Blood pressure not well controlled. Physical Exam Vital signs: Vital Signs 10/09/18 20:00 10/10/18 00:00 10/10/18 00:04 Temperature 97.4 F L 97.6 F Pulse Rate 69 67 60 Respiratory Rate 18 18 Blood Pressure 128/63 129/67 Pulse Oximetry 95 96 10/10/18 04:00 10/10/18 08:00 10/10/18 11:10 Temperature 97.8 F 97.6 F 97.7 F Pulse Rate 61 65 72 Respiratory Rate 18 18 18 Blood Pressure 155/74 H 171/82 H 171/84 H Pulse Oximetry 96 99 94 L 10/10/18 12:00 10/10/18 15:35 Temperature 97.8 F Pulse Rate 63 67 Respiratory Rate 20 Blood Pressure 145/67 H Pulse Oximetry 96 Intake & Output 10/09/18 10/10/18 10/10/18 18:59 06:59 18:59 Other: # Voids 4 2 Date of Last Bowel Movement 10/05/18 10/09/18 10/09/18 # Bowel Movements 2 Narrative: GENERAL: This is a well-nourished, well-developed patient, in no apparent distress. CARDIOVASCULAR: Normal rate and regular rhythm without murmurs, gallops, or rubs. RESPIRATORY: Good respiratory efforts. Breath sounds equal and clear to auscultation bilaterally. GASTROINTESTINAL: Abdomen soft, non-tender, non-distended. Normal active bowel sounds MUSCULOSKELETAL: Extremities without cyanosis, or edema. NEURO: Alert & Oriented x4 to person, place, time, situation. Moves all ext x4. Strength is 4+ out of 5 on the left compared to 5 out of 5 on the right. Speech is clear. PSYCH: Appropriate mood and affect. Results Labs CBC & Chem 7: 10/10/18 06:56 10/10/18 06:56 Assessment and Plan (1) Acute cerebrovascular accident: Code(s): I63.9 - Cerebral infarction, unspecified Status: Acute (2) Impaired mobility and activities of daily living: Code(s): Z74.09 - Other reduced mobility Status: Acute (3) Hypertension: Code(s): I10 - Essential (primary) hypertension Status: Acute (4) Hyperlipemia: Code(s): E78.5 - Hyperlipidemia, unspecified Status: Acute Plan 78-year-old male admitted with acute CVA. The patient has hypertension but went off his antihypertensives 2 years ago. Acute CVA -Status post TPA administration -Status post Cardene drip -PT and OT -A1c 5.2 -MRI suggests right lateral thalamus infarct. No intracranial hemorrhage or midline shift. -Repeat head CT unremarkable. Medicine patient started on aspirin 325 mg per neurology. -Will need ongoing surveillance for A. fib outpatient. Patient will follow-up with his cardiac monitor Dr. Jorge outpatient. -Patient will require ongoing physical therapy. [facility] is following and peer to peer was requested by Dr. Esparza. Dyslipidemia -Continue statin Hypertension: Not well controlled -Continue Norvasc. Continue lisinopril to 20 mg twice daily. Add hydralazine 25 mg 3 times daily. Need to continue to titrate antihypertensives. -Clonidine as needed - Continue to monitor closely. CKD stage III: - Discussed with his . His CKD has been stable. - Avoid nephrotoxins. -Continue to monitor. DVT GI prophylaxis -Teds SCDs -Pepcid Disposition: [facility] following for possible admission. Peer to peer requested. Continue to titrate antihypertensive. Progress Note: Quality VTE Deep Vein Thrombosis/Pulmonary Embolism Present on Admission: No _ (1) Hypertension Qualifiers: Hypertension type: unspecified Qualified Code(s): I10 - Essential (primary) hypertension (2) Hyperlipemia Qualifiers: Hyperlipidemia type:
--- NOTE | 2018-10-10 17:48 | P.DCO ---
Diagnosis (1) Acute cerebrovascular accident: Status: Acute (2) Impaired mobility and activities of daily living: Status: Acute (3) Hypertension: Status: Acute (4) Hyperlipemia: Status: Acute Physical Therapy Order: Evaluate and treat, Improve ambulation and Strength and gait training Occupational Therapy Order: Improve ADL, Gross motor coordination and Fine motor coordination Home Health Nursing Order: Medical education, Signs/symptoms of disease process, Medication education-adverse effect and Nursing assessment with vital signs Case Management Consult Case Management Consult-Home Health: Yes I have seen patient Don Cardozo on 10/10/18. My clinical findings support the need for the requested home health care services because: Limited ability to care for self and High risk of falls I certify that my clinical findings support that this patient is homebound because: Unsteady gait/balance _ (1) Hypertension Qualifiers: Hypertension type: unspecified Qualified Code(s): I10 - Essential (primary) hypertension (2) Hyperlipemia Qualifiers: Hyperlipidemia type:
[2018-10-10] MEDS: hydrALAZINE 25 MG Tablet PO SCH (18:42)
[2018-10-11] MEDS: Aspirin 325 MG Tablet PO SCH (10:12)
[2018-10-11] MEDS: Lisinopril 20 MG Tablet PO SCH ×2 (10:12→21:04)
[2018-10-11] MEDS: amLODIPine 10 MG Tablet PO SCH (10:12)
[2018-10-11] MEDS: hydrALAZINE 25 MG Tablet PO SCH (10:12)
[2018-10-11] MEDS: Famotidine PF Inj 20 MG/2 ML Vial IV.PUSH SCH ×2 (10:13→21:03)
[2018-10-11] MEDS: Senna/Docusate Sodium 8.6/50 MG Tablet PO SCH ×2 (10:14→21:04)
[2018-10-11 10:36] LABS: Hematocrit 43.5 % (39.0-51.0); Hemoglobin 14.9 gm/dL (13.0-17.0); Mean Corpuscular HGB Conc 34.2 % (32.0-36.0); Mean Corpuscular Hemoglobin 27.2 pg (27.0-34.0); Mean Corpuscular Volume 79.7 fL (80.0-100.0); Mean Platelet Volume 7.9 fL (7.0-11.0); Platelet Count 179 th/mm3 (150-450); Red Blood Count 5.46 mil/mm3 (4.50-5.90); Red Cell Distribution Width 15.1 % (11.6-17.2); White Blood Count 5.7 th/mm3 (4.0-11.0)
[2018-10-11 10:58] LABS: Calcium 9.4 mg/dL (8.5-10.1); Carbon Dioxide 24.2 meq/L (21.0-32.0); Potassium 3.9 meq/L (3.5-5.1)
--- NOTE | 2018-10-11 11:13 | P.PNIM ---
Subjective Interval history: in no acute distress. no new complaints. wants to go home today. Physical Exam Vital signs: Vital Signs 10/10/18 12:00 10/10/18 15:35 10/10/18 16:00 Temperature 97.8 F Pulse Rate 63 67 66 Respiratory Rate 20 Blood Pressure 145/67 H Pulse Oximetry 96 10/10/18 20:00 10/10/18 20:11 10/11/18 00:00 Temperature 97.8 F 97.8 F Pulse Rate 65 66 64 Respiratory Rate 20 16 Blood Pressure 137/63 156/73 H Pulse Oximetry 95 97 10/11/18 00:12 10/11/18 03:59 10/11/18 04:58 Temperature Pulse Rate 66 57 L Respiratory Rate 16 Blood Pressure Pulse Oximetry 10/11/18 08:00 Temperature 97.7 F Pulse Rate 65 Respiratory Rate 20 Blood Pressure 177/81 H Pulse Oximetry 93 L Intake & Output 10/10/18 10/11/18 10/11/18 18:59 06:59 18:59 Weight 85.8 kg Other: # Voids 2 3 Date of Last Bowel Movement 10/09/18 10/09/18 Constitutional no acute distress Routine Respiratory Exam Present CTA bilaterally Routine Cardiovascular Exam Present RRR Routine Abdominal Exam Present soft Routine Extremities Exam Comments: no pedal edema. Routine Neurological Exam Present alert and oriented X3 Results Labs CBC & Chem 7: 10/11/18 08:01 10/11/18 08:01 Assessment and Plan (1) Acute cerebrovascular accident: Code(s): I63.9 - Cerebral infarction, unspecified Status: Acute (2) Impaired mobility and activities of daily living: Code(s): Z74.09 - Other reduced mobility Status: Acute (3) Hypertension: Code(s): I10 - Essential (primary) hypertension Status: Acute (4) Hyperlipemia: Code(s): E78.5 - Hyperlipidemia, unspecified Status: Acute Plan A/P Acute CVA -Status post TPA administration -Status post Cardene drip -PT and OT -A1c 5.2 -MRI suggests right lateral thalamus infarct. No intracranial hemorrhage or midline shift. -Repeat head CT unremarkable. Medicine patient started on aspirin 325 mg per neurology. -Will need ongoing surveillance for A. fib outpatient. Patient will follow-up with his clinic receptionist Dr. Jorge outpatient. -Patient will require ongoing physical therapy. denied for [facility]. Dyslipidemia -Continue statin Hypertension: -Continue Norvasc. Continue lisinopril to 20 mg twice daily. Added hydralazine 25 mg 3 times daily; the dose will be increased to 50 mg TID. Need to continue to titrate antihypertensives as outpatient. CKD stage III: - Discussed with his . His CKD has been stable. - Avoid nephrotoxins. -Continue to monitor. DVT GI prophylaxis -Teds SCDs -Pepcid Discussed Condition With: the patient. Discharge Planning: dc home with [facility] - tomorrow if BP better controlled. see med list. f/u; pcp, neurology and cardiology. d/w the patient. Progress Note: Quality VTE Deep Vein Thrombosis/Pulmonary Embolism Present on Admission: No _ (1) Hyperlipemia Qualifiers: Hyperlipidemia type: (2) Hypertension Qualifiers: Hypertension type: unspecified Qualified Code(s): I10 - Essential (primary) hypertension
--- NOTE | 2018-10-11 11:17 | P.DS ---
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 AND WILL RECEIVE THIS CONSULT CONFIRMED WITH RAYMUNDO MOSLEY/POD E DR ESPINO SPOKE WITH DR DAO CONSULT REQUEST JUST RECEIVED @ 2300 Ordering Provider: PABLO 10/05/18 23:19 Consult to Hospitalist Routine Consulting Provider: Cassandra Betancur Reason for Consultation: CVA Notified:: Service Spoke with:: CHETAN Date Notified:: 10/05/18 Time Notified:: 23:39 Ordering Provider: FRANCINE 10/06/18 12:01 HUB Only Consult Order Routine Consulting Provider: Braxton Limon 10/07/18 13:48 Consult to Rehab Medicine Routine Consulting Provider: Ana M Esparza Reason for Consultation: CVA Notified:: Service Spoke with:: Susanne Date Notified:: 10/07/18 Time Notified:: 13:54 Ordering Provider: HARISH Brief History from admission: 78-year-old male presents as a stroke alert. The patient was watching TV and went to reach for drink with his left hand at approximately 8: 15 PM when he realized he had weakness of his left arm and then his left leg. The called EMS who called a stroke alert in the field. Upon arrival the patient did complain of weakness to left arm and left leg with weakness and numbness of the left leg. He denied any difficulty with his vision, does complain of feeling slightly off balance. The patient does have a history of hypertension and hyperlipidemia, however, does not currently take any medications including anticoagulants. The patient denies any previous history of TIA or CVA. The case was discussed with neurologist on-call and the patient has received IV TPA infusion. DS: Diagnosis Discharge Diagnosis (1) Acute cerebrovascular accident: Status: Acute (2) Impaired mobility and activities of daily living: Status: Acute (3) Hypertension: Status: Acute (4) Hyperlipemia: Status: Acute DS: Summary Acute CVA -Status post TPA administration -Status post Cardene drip -PT and OT -A1c 5.2 -MRI suggests right lateral thalamus infarct. No intracranial hemorrhage or midline shift. -Repeat head CT unremarkable. Medicine patient started on aspirin 325 mg per neurology. -Will need ongoing surveillance for A. fib outpatient. 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 Jorge outpatient. -Patient will require ongoing physical therapy. denied for [employer]. Dyslipidemia -Continue statin Hypertension: -Continue Norvasc. Continue lisinopril to 20 mg twice daily. Added hydralazine 25 mg 3 times daily. Need to continue to titrate antihypertensives as outpatient. CKD stage III: - Discussed with his . His CKD has been stable. - Avoid nephrotoxins. -Continue to monitor. Time Spent with Patient Total time spent providing and/or coordinating discharge services: Less than 30 minutes Quality: Stroke Last date observed well: 10/05/18 Last time observed well: 20:15 Quality: VTE Deep Vein Thrombosis/Pulmonary Embolism Present on Admission: No Exam Narrative Exam Narrative: patient in no acute distress. on exam; S1/S2 heard- bilateral air entry present/ abdomen is soft/ no pedal edema/ awake, oriented and moves all extremities. Results Procedures completed during hospitalization: none. Labs on day of discharge: Labs from last 24 hours 10/11/18 10/11/18 08:01 08:01 WBC 5.7 RBC 5.46 Hgb 14.9 Hct 43.5 MCV 79.7 L MCH 27.2 MCHC 34.2 RDW 15.1 Plt Count 179 MPV 7.9 Sodium 140 Potassium 3.9 Chloride 106 Carbon Dioxide 24.2 Anion Gap 10 BUN 25 H Creatinine 1.57 H Estimated GFR 43 L Random Glucose 78 Calcium 9.4 Impressions ITS Impressions Chest X-Ray 10/05/18 21:18 CONCLUSION: No acute cardiopulmonary disease. Head CTA 10/05/18 21:18 CONCLUSION: 1. Negative CTA Head. The report was called to Dr. Dao by Dr. Juarez at 10:00 PM on 10/05/2017. Neck CTA 10/05/18 21:18 CONCLUSION: 1. Bilateral plaquing the carotid arteries with less than 50% diameter stenosis. 2. Dominant right vertebral artery with diminutive left vertebral artery. Head MRI 10/06/18 00:00 CONCLUSION: 1. Focal signal abnormality within the right lateral thalamus on the diffusion- weighted images indicating acute infarct. 2. Mild cerebral atrophy. 3. Mild periventricular and subcortical white matter small vessel ischemic changes bilaterally. 4. No acute hemorrhage, midline shift, mass effect or extra-axial fluid collection. Venous Doppler Study 10/06/18 00:00 CONCLUSION: 1. The study is negative for lower extremity deep venous thrombosis. Head CT 10/06/18 21:41 CONCLUSION: Stable noncontrast head CT. No acute hemorrhage is present. . Discharge Plan Discharge Disposition Patient Disposition: W/Home Health Service Discharge Condition Condition: Serious Physicians Team Primary Care Provider: UNKNOWN, Attending Provider: Montez Adamson Other Providers: Lina Ohara ; Braxton Limon ; Ana M Esparza Rxs /Orders / Referrals /Forms Prescriptions: New hydralazine 25 mg Tablet 25 mg PO TID 30 Days Qty: 90 RF: 0 aspirin 325 mg Tablet 325 mg PO DAILY 30 Days Qty: 30 RF: 0 lisinopril 20 mg Tablet 20 mg PO BID 30 Days Qty: 60 RF: 0 Continue atorvastatin 40 mg Tablet 40 mg PO QPM RF: 0 amlodipine 10 mg Tablet 10 mg PO DAILY RF: 0 furosemide 20 mg Tablet DAILY RF: 0 Referrals: [facility], [Agency] - See Instructions (Agency will call with appointment time) UNKNOWN, [Primary Care Provider] - See Instructions Discharge Interventions Interventions: Discharge Planning - Case Management Last Done: 10/11/18 09:40 Status ED Status: Left Department
[2018-10-11] MEDS: hydrALAZINE 50 MG Tablet PO SCH ×2 (12:33→17:58)
--- NOTE | 2018-10-12 08:33 | P.PNIM ---
Subjective Interval history: in no acute distress. denies pain. no new complaints. BP trend noted. Physical Exam Vital signs: Vital Signs 10/11/18 11:20 10/11/18 11:25 10/11/18 16:00 Temperature 97.4 F L Pulse Rate 86 Respiratory Rate 20 Blood Pressure 187/85 H 190/87 H 187/80 H Pulse Oximetry 96 10/11/18 20:00 10/11/18 20:27 10/12/18 00:00 Temperature 97.8 F 97.8 F Pulse Rate 76 67 Respiratory Rate 18 18 Blood Pressure 186/84 H 151/61 H Pulse Oximetry 95 96 96 10/12/18 04:00 Temperature 97.8 F Pulse Rate 63 Respiratory Rate 18 Blood Pressure 177/77 H Pulse Oximetry 95 Intake & Output 10/11/18 10/12/18 10/12/18 18:59 06:59 18:59 Output Total 800 / 800 Balance -800 / -800 Weight 88.9 kg Output: Urine 800 / 800 Constitutional no acute distress Routine Respiratory Exam Present CTA bilaterally Routine Cardiovascular Exam Present RRR Routine Abdominal Exam Present soft Routine Extremities Exam Comments: no pedal edema. Routine Neurological Exam Present alert and oriented X3 Results Labs CBC & Chem 7: 10/11/18 08:01 10/11/18 08:01 Procedures Procedures: none. Assessment and Plan (1) Acute cerebrovascular accident: Code(s): I63.9 - Cerebral infarction, unspecified Status: Acute (2) Impaired mobility and activities of daily living: Code(s): Z74.09 - Other reduced mobility Status: Acute (3) Hypertension: Code(s): I10 - Essential (primary) hypertension Status: Acute (4) Hyperlipemia: Code(s): E78.5 - Hyperlipidemia, unspecified Status: Acute Plan A/P Acute CVA -Status post TPA administration -Status post Cardene drip -PT and OT -A1c 5.2 -MRI suggests right lateral thalamus infarct. No intracranial hemorrhage or midline shift. -Repeat head CT unremarkable. patient started on aspirin 325 mg per neurology. -Will need ongoing surveillance for A. fib outpatient. 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 Jorge outpatient. -Patient will require ongoing physical therapy. denied for [employer]. Dyslipidemia -Continue statin Hypertension: -Continue Norvasc. Continue lisinopril to 20 mg twice daily. Hydralazine was increased to 50 mg TID. Need to continue to titrate antihypertensives as outpatient. CKD stage III: - Discussed with his . His CKD has been stable. - Avoid nephrotoxins. -Continue to monitor. DVT GI prophylaxis -Teds SCDs -Pepcid Discharge Planning: dc home with C -today if BP stable. see med list. f/u; pcp, neurology and cardiology. d/w the patient. Progress Note: Quality VTE Deep Vein Thrombosis/Pulmonary Embolism Present on Admission: No _ (1) Hypertension Qualifiers: Hypertension type: unspecified Qualified Code(s): I10 - Essential (primary) hypertension (2) Hyperlipemia Qualifiers: Hyperlipidemia type:
[2018-10-12] MEDS: Aspirin 325 MG Tablet PO SCH (08:45)
[2018-10-12] MEDS: amLODIPine 10 MG Tablet PO SCH (08:45)
[2018-10-12] MEDS: Lisinopril 20 MG Tablet PO SCH (08:45)
[2018-10-12] MEDS: Senna/Docusate Sodium 8.6/50 MG Tablet PO SCH (08:45)
[2018-10-12] MEDS: hydrALAZINE 50 MG Tablet PO SCH ×2 (08:46→13:48)
[2018-10-12] MEDS: Famotidine PF Inj 20 MG/2 ML Vial IV.PUSH SCH (08:46)
[2018-10-12 09:31] VITALS: RESP 20
[2018-10-12 12:44] VITALS: BP 126/60; TEMP 97.5; O2SAT 96
[2018-10-12 15:26] VITALS: PULSE 73
== END 2018-10-12 15:21 | disposition home health service (06) | DRG 62 ==
LOC: NEPE 21:15 → NEDA 22:54 → N03 23:56 → N05 10-07 14:11
PROVIDERS: ADMIT Internal Medicine; ATTEND Internal Medicine
DX: E78.5 Hyperlipidemia, unspecified; N18.3 Chronic kidney disease, stage 3 (moderate); R47.1 Dysarthria and anarthria; G31.9 Degenerative disease of nervous system, unspecified; M62.838 Other muscle spasm; Z79.899 Other long term (current) drug therapy; G81.94 Hemiplegia, unspecified affecting left nondominant side; I63.9 Cerebral infarction, unspecified; I12.9 Hypertensive chronic kidney disease with stage 1 through stage 4 chronic kidney disease, or unspecified chronic kidney disease; K44.9 Diaphragmatic hernia without obstruction or gangrene; Z87.891 Personal history of nicotine dependence
CPT/HCPCS: 70450; 70496; 70498; 70551; 71010; 71045; 80048; 80053; 80061; 80307; 81001; 82550; 83036; 83735; 84100; 84484; 85025; 85027; 85384; 85610; 85730; 86850; 86900; 86901; 87641; 90774; 90784; 92526; 92610; 93005; 93306; 93971; 96374; 97110; 97116; 97162; 97167; 97530; 97535; 99291; C8952; G0195; J2270; J2405; J2997; J7030; J7050; P9612; Q9967